=== PATIENT | male | born 1950 | race Caucasian/White ===

== ENCOUNTER → 2020-06-19 11:34 | Outpatient (CLI) | payer MEDICARE, OTHER, SELFPAY ==
[2020-06-19 12:29] LABS: COVID19 -Nasal RAPID Negative (Negative)
== END ==
PROVIDERS: Visit Provider Nurse Practitioner
DX: Z11.59 Encounter for screening for other viral diseases (principal)
CPT/HCPCS: 87635

== ENCOUNTER 2020-06-21 09:38 | Day surgery (SDC) | payer MEDICARE, OTHER, SELFPAY ==
--- NOTE | 2020-06-21 | PATH_ITS ---
[facility] Accession Number: [id number] . 01 Material submitted: . colon - DESCENDING COLON POLYP . 01 Clinical history: . SCREENING COLONOSCOPY . 02 Diagnosis: Descending Colon, Polyp: Tubular adenoma. MRV 06/23/2020 1005 Local . 02 Electronically signed: . Amor Gomez MD, PhD, Pathologist NPI- [id number] . 01 Gross description: . Received in formalin, labeled descending colon polyp, and consists of a 0.3 x 0.2 x 0.2 cm enciso-pink fragment of soft tissue which is entirely submitted in cassette A1. ([id number]) /MRV 06/22/2020 1400 Local . 02 Pathologist provided ICD-10: D12.4 . 02 CPT . 637487 Performed at: 01 [facility] [address] [id number] MD Javon Mcdonnell MD Phone: [phone] Performed at: 02 [facility] [address] [place] [id number] MD Jazmin Malave MD Phone: [phone]
[2020-06-21 10:01] VITALS: BP 158/82; PULSE 81; RESP 18; TEMP 36.8; O2SAT 96; BMI 26.7
[2020-06-21] MEDS: LACTATED RINGERS 1,000 ML 200 ML IV (10:11)
--- NOTE | 2020-06-21 10:55 | PM.HP.1 ---
History of Present Illness History of Present Illness Date Patient Seen: 06/21/20 Time Patient Seen: 10:55 Chief complaint: SCREENING COLONOSCOPY Narrative: The patient presents for colorectal sreening. He had a previously normal colonoscopy 10 years ago. No personal or family history of colon cancer. On further history denies any recent gastrointestinal symptoms. No nausea, vomiting, abdominal pain, loss of appetite, unexplained weight loss, change in bowel habits, diarrhea, constipation, melena, hematochezia, or bright red blood per rectum. Patient History Medical History Ankle pain (~1964) Foot pain (~1999) Hearing loss Personal history of malignant melanoma Psoriasis (~2004) Skin cancer (~1994) Vision disorder Well adult exam Surgical History Anesthesia History of total knee replacement (~2015) Family & Social History Family History Father History of heart disease Mother History of heart disease Social History: household members spouse Tobacco & Substance use: Tobacco type cigarettes Smoking Status Current some day smoker alcohol intake current alcohol intake frequency 0-2 drinks per day Substance Use Type does not use Meds Home Medications and Allergies Home Medications Medication Instructions Recorded Confirmed Type clobetasol 0.05 % topical spray 1 applictn TOP BID 08/04/19 06/21/20 History sodium,potassium,mag sulfates 17.5 177 ml PO DAILY #354 ml 05/31/20 06/21/20 Rx gram-3.13 gram-1.6 gram oral soln Allergies Allergy/AdvReac Type Severity Reaction Status Date / Time No Known Allergies Allergy Uncoded 10/24/19 13:29 Review of Systems Review of Systems Narrative: A 10 point review of systems is negative except as noted in the HPI Exam Vital Signs (past 8 hours): - 06/21/20 10:01 Temperature 98.3 F Pulse Rate 81 Respiratory Rate 18 Blood Pressure 158/82 H Pulse Oximetry 96 Oxygen Delivery Method Room Air Narrative Exam Narrative: General-no acute distress, well nourished adult man HEENT-moist mucous membranes, no scleral icterus Neck-supple, no lymphadenopathy Chest- non labored respirations, clear to auscultation bilaterally Cardiac-regular rate no peripheral edema Abdomen-soft, nontender, non distended Extremities-warm, well perfused Neurological-alert and oriented, no focal deficits Assessment & Plan Assessment and plan (1) Screening for colon cancer: Status: Acute Assessment & Plan narrative: The patient requires colorectal screening and colonoscopy is recommended. Technical details were discussed. Risks, benefits, alternatives explained. Risks including but not limited to myocardial infarction, aspiration, bleeding, pain, missed lesion, incomplete examination, need for further radiographic studies, colonic perforation, and need for major abdominal surgery were discussed. All questions were answered to their satisfaction, and they are in agreement with this plan.
[2020-06-21] MEDS: MIDAZOLAM 5 MG/5 ML VIAL IV (11:05)
[2020-06-21] MEDS: fentaNYL 250 MCG/5 ML INJ IV (11:12)
--- NOTE | 2020-06-21 11:30 | PM.OP.ENDO ---
Operative Date/Time/Diagnoses Date of procedure: 06/21/20 Time of procedure: 11:30 Pre-op diagnosis: Screening colonoscopy Post-op diagnosis: other (The descending colonic polyp, spear diverticulosis) Procedure & Clinicians Study performed: Colonoscopy, polypectomy Same procedure as scheduled: Yes Indications: Screening colonoscopy Surgeon: Saulo Ramirez Procedure Notes SCOAP/Timeout: Performed Procedure in detail: Medications: Conscious sedation using 5mg IV midazolam and 250mcg IV of fentanyl The history and physical was performed/updated and the patient is ASA class is 2. The procedure was discussed in detail with the patient. Potential risks complications including infection, bleeding, missed diagnosis, perforation, need for surgery, and were explained. Their questions were answered and informed consent was obtained. Patient was brought to the procedure room and placed standard monitoring equipment. The patient's vital signs were monitored continuously throughout the entire procedure. Prior to starting time-out was performed. The ablation patient was placed in the left lateral recumbent position. Procedural sedation was administered. Examination began with a thorough inspection of the perianal area there was no evidence of fissures, fistulae, external hemorrhoids or cutaneous malignancy. The colonoscopy scope was then placed into the anal canal and was advanced to the cecum, which was identified by the ileocecal valve, the appendiceal orifice and the confluence of the taenia. The scope was then slowly withdrawn examining colon thoroughly in all directions, irrigating it of any residual stool. 5 mm benign appearing polyp in the descending colon removed with cold 10 mm snare. Spear diverticulosis The patient tolerated the procedure well. They will be discharged once criteria are met. The prep was of good/excellent quality. The withdrawl time was 11 minutes. The sedation time was 28minutes. Specimen(s): other (Descending colon polyp) Complications: none Impression: Colonic polyp, spear diverticulosis Post-procedure Recommendations: Colonscopy in 5 years Disposition: same day surgery
[2020-06-21 11:32] VITALS: BP 121/75; PULSE 68; RESP 20; TEMP 35.7; O2SAT 95
[2020-06-21 11:37] VITALS: BP 121/75; PULSE 76; RESP 19; O2SAT 96
[2020-06-21 11:42] VITALS: BP 132/78; PULSE 67; RESP 22; O2SAT 96
[2020-06-21 11:49] VITALS: BP 125/74; PULSE 62; RESP 14; TEMP 36.4; O2SAT 98
== END 2020-06-21 12:14 | disposition home or self-care (01) ==
PROVIDERS: PCP Internal Medicine; Referring Provider Internal Medicine; Visit Provider Surgery
PROC: 0DJD8ZZ Inspection of Lower Intestinal Tract, Via Natural or Artificial Opening Endoscopic (ICD-10-PCS; CPT 45378; principal; 2020-06-21 10:45)
DX: Z12.11 Encounter for screening for malignant neoplasm of colon (principal); F17.210 Nicotine dependence, cigarettes, uncomplicated; K57.30 Diverticulosis of large intestine without perforation or abscess without bleeding; D12.4 Benign neoplasm of descending colon
CPT/HCPCS: 45380; 99152; 99153; J2250; J3010

== ENCOUNTER → 2021-04-04 12:08 | Outpatient (CLI) | payer MEDICARE, OTHER, SELFPAY ==
--- NOTE | 2021-04-04 12:18 | DI.CT.S_ITS ---
PROCEDURE: CT LE RT WO CON INDICATIONS: Pain in right ankle and joints of right foot TECHNIQUE: Noncontrast 1-1.5 mm axial sections acquired from above the tibiotalar joint to the bottom of the calcaneus, with coronal and sagittal reformats. COMPARISON: [facility] [place], CR, XR ANKLE 3+ VIEWS RIGHT, 03/26/2019, 9:57. [facility] [place], CR, XR ANKLE 3 VIEWS WEIGHT BEARING RIGHT, 11/18/2020, 16:28. FINDINGS: Image quality: Excellent. Bones: There is varus angulation of the talus relative to the distal tibia with areas of severe joint space narrowing and articular surface remodeling at multiple points within the articular surface, including where the medial talus articulates with the medial malleolus, where the medial talar dome articulates with the central tibial plafond, and where the lateral talar dome articulates with the distal fibula. There is mild osseous overgrowth at the distal tibiofibular syndesmosis. Chronic irregularity and remodeling of the medial and lateral malleoli are seen. Degenerative changes are seen at the posterior subtalar facet, most prominent at the articulation between the lateral process of the talus and the calcaneus at the angle of Gissane. A prominent peroneal tubercle is present. Mild dorsal spurring is seen at the talonavicular joint and the navicular cuneiform articulations. Moderate to severe degenerative changes are seen in the 2nd tarsometatarsal joint and there are more mild degenerative changes in the remaining tarsometatarsal joints. Relatively minor degenerative changes are seen in the forefoot and toes. Soft tissues: No acute soft tissue edema or hematoma is seen. The articular cartilages, ligaments, and tendons are not well evaluated with CT. Mild fatty infiltration of the intrinsic foot musculature is noted that may be related to disuse or chronic denervation changes. IMPRESSION: 1. 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 There is chronic mild varus angulation of the talus relative to the distal tibia. 2. Additional degenerative changes throughout the hindfoot and midfoot as described above, with moderate to severe degenerative changes at the 2nd tarsometatarsal joint. Dictated by: Cosmo Nieto M.D. on 04/04/2021 at 14:26 Approved by: Cosmo Nieto M.D. on 04/04/2021 at 14:46
== END ==
PROVIDERS: PCP Internal Medicine; Referring Provider Orthopaedic Surgery Foot and Ankle Surgery; Visit Provider Orthopaedic Surgery Foot and Ankle Surgery
DX: M25.571 Pain in right ankle and joints of right foot (principal)
CPT/HCPCS: 73700

== ENCOUNTER → 2021-08-03 09:07 | Outpatient (CLI) | payer MEDICARE, OTHER, SELFPAY ==
[2021-08-03 13:20] LABS: COVID19 -Nasal RAPID Negative (Negative)
== END ==
PROVIDERS: PCP Internal Medicine; Referring Provider Nurse Practitioner Family; Visit Provider Nurse Practitioner Family
DX: Z01.812 Encounter for preprocedural laboratory examination (principal); Z20.822 Contact with and (suspected) exposure to COVID-19
CPT/HCPCS: 87635; C9803

== ENCOUNTER 2021-08-06 11:24 | Observation (INO) | payer MEDICARE, OTHER, SELFPAY ==
[2021-08-02 15:09] VITALS: BMI 28.0
[2021-08-05] VITALS (12 sets, daily range): BP systolic 105–137; BP diastolic 59–76; PULSE 62–82; RESP 9–64; TEMP 36.1–37.3; O2SAT 15–98; BMI 28.0
--- NOTE | 2021-08-05 | DI.RAD.S_ITS ---
PROCEDURE: XR ANKLE RT 2V INDICATIONS: RIGHT ANKLE FIXATION TECHNIQUE: 3 views of the ankle were acquired. COMPARISON: [facility] [place], CR, XR ANKLE 3 VIEWS WEIGHT BEARING RIGHT, 11/18/2020, 16:28. FINDINGS: Multiple submitted intraoperative fluoroscopic C-arm images demonstrates placement of right tibiotalar joint prosthesis which appears to be in expected position and bony alignment is normal. IMPRESSION: Fluoroscopic images demonstrating placement of right tibiotalar joint prosthesis. Dictated by: Royce Silverman [facility] Interpreted: Rajani Gregorio MD on 08/05/2021 at 13:04 Transcribed by: ROLF on 08/05/2021 at 13:05 Approved by: Rajani Gregorio M.D. on 08/05/2021 at 15:44
[2021-08-05] MEDS: ACETAMINOPHEN 325 MG TABLET 975 MG PO ×3 (06:51→20:07)
[2021-08-05] MEDS: GABAPENTIN 300 MG CAPSULE PO (06:51)
--- NOTE | 2021-08-05 07:09 | PM.PREOP ---
Pre-operative Note COVID-19 COVID-19 status: Negative Result date/Date tested (Pos, Neg/Pending): 08/04/21 Interval Note History & Physical reviewed/Exam performed by Physician: Yes Changes to H&P: No
--- NOTE | 2021-08-05 07:57 | SUR.PREOP ---
Block start time [0740] . Monitoring initiated and maintained throughout procedure. Oxygen and medications given per anesthesiologist instructions. Patient remained stable throughout procedure, no adverse reactions noted. Block end time [0750].
[2021-08-05] MEDS: CEFAZOLIN 2 GM/20 ML SYRINGE IV ×2 (08:07→15:51)
--- NOTE | 2021-08-05 08:14 | PM.PROC.1 ---
Procedures Date/Time Date of procedure: 08/05/21 Time of procedure: 07:44 Nerve Block Time out performed: Yes Local anesthetic used: bupivacaine 0.25% Location of anesthetic used: RIGHT Amount of anesthesia used (mL): 30 Nerve blocks: femoral (adductor canal) Procedure successful: Yes Patient tolerated procedure: well and no complications Complications: none Additional comments: Adductor canal nerve block performed for post-op pain control at surgeon request. Patient was positioned with IV, O2, monitors and rescue meds available. Prepped and timeout performed. Target identified with continuous ultrasound guidance. 30 mL of bupivicaine 0.25% was injected perineurally with intermittent aspiration and injection. No blood, no paresthesias, no acute complications. Ultrasound pic attained.
--- NOTE | 2021-08-05 08:16 | PM.PROC.1 ---
Procedures Date/Time Date of procedure: 08/05/21 Time of procedure: 07:47 Nerve Block Time out performed: Yes Local anesthetic used: bupivacaine 0.25% Location of anesthetic used: RIGHT Amount of anesthesia used (mL): 30 Nerve blocks: peroneal (popliteal) Procedure successful: Yes Patient tolerated procedure: well and no complications Complications: none Additional comments: Popliteal nerve block performed for post-op pain control at surgeon request. Patient was positioned with IV, O2, monitors and rescue meds available. Prepped and timeout performed. Target identified with continuous ultrasound guidance. 30 mL of bupivicaine 0.25% was injected perineurally with intermittent aspiration and injection. No blood, no paresthesias, no acute complications. Ultrasound pic attained.
--- NOTE | 2021-08-05 08:53 | SUR.OPER ---
Supine on padded OR bed, head on pillow, arms secured on padded arm boards at <90 degrees abduction, legs uncrossed, safety belt at waist, tape over blanket over lower left leg, right leg draped free with gel bump under right hip.
[2021-08-05] MEDS: BUPIVACAINE 0.25% (PF) 30 ML, EPINEPHrine 0.15 MG INJ (09:11)
[2021-08-05] MEDS: LACTATED RINGERS 1,000 ML 120 ML IV (09:38)
[2021-08-05] MEDS: fentaNYL 100 MCG/2 ML INJ IV (12:59)
--- NOTE | 2021-08-05 13:22 | P.OP_ITS ---
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 Total ankle arthroplasty right CPT code 84450 2. Repair ankle lateral ligament reconstruction Brostrom CPT code 17148-81 3. Lengthening Achilles tendon, right CPT code 81900-37 Procedures performed with a modifier 22 due to increased difficulty of the procedure took twice as long as the standard ankle replacement due to the severe varus deformity required deltoid peel, meticulous mobilization and debridement, and lateral ligament reconstruction for ligament balancing. Same procedure as scheduled: Yes Indications: Patient is a 70-year-old male with end-stage varus right ankle arthritis. He has failed non operative treatment. He was counseled on options for ankle fusion and total ankle replacement. He has elected for total ankle replacement. The risks benefits and alternatives to the procedure were discussed with the patient and he has been given an opportunity to ask questions. The risks of surgery include but are not limited to infection, malunion, nonunion, persistence of pain, damage to nerves and blood vessels, posttraumatic arthritis, loosening, impingement, need for additional procedures, DVT, PE, pull cardiopulmonary complications and . Patient expressed their understanding of the risks and benefits of surgery and has elected to proceed. Consent was signed in the office. Additionally we discussed additional procedures including ligament balancing and possible osteotomies and Achilles tendon lengthening. During the operation, the services of a physician certified surgical tech/first assistant were medically indicated and necessary to provide the exposure of the operative site for the surgical procedure and to maintain the limb in a proper position to carry out the operation safely and efficiently. Without a qualified equity sales assistant being present this would extended the operative procedure and made the procedure technically more difficult to perform. Surgeon: Mari Bran Hand Hardener: Shakira Girard Anesthesia Type: General, Peripheral nerve block and Local (30 cc 0.25% with epinephrine for local anesthetic) Operative Notes Findings: Varus ankle arthritis approximately 20? required deltoid peel and medial lateral gutter debridements and lateral ligament reconstruction. Equinus contracture with Achilles lengthening. Severe end-stage posttraumatic ankle arthritis treated with total ankle replacement Closure Type: primary Specimen(s): none sent Prosthetic devices, grafts, tissues, transplants, or devices: Saltotalaris tibia 2 XL talus flatcut size 1 right poly 9mm right Arthrex SutureTak anchors 3x 14.5 (two) Estimated Blood Loss (mL): 100 Blood products transfused: none Tourniquet time (min): 150 Procedure in detail: The patient was seen in the preoperative area the site of surgery marked informed consent confirmed. Final questions were answered. The patient was seen by the anesthesia team and a peripheral nerve block was placed by the anesthesiologist for postoperative pain control. The patient was brought back to the operating room by the anesthesia team positioned supine on the operative table. All bony problems well padded. Well-padded thigh tourniquet was placed on the upper right thigh. An ipsilateral thigh bump was placed. An SCD was on the contralateral lower extremity. A bump was placed under the leg with the talus allowing the heel to hang free. The right lower extremities draped in the and prepped in the standard sterile fashion. A formal time-out procedure was performed confirming the patient's side and site of surgery administration of appropriate preoperative antibiotics which was 2 g of Ancef. Implants were in the room and accounted for. All were in agreement. Attention was turned to the right lower extremity an Esmarch bandage was used for exsanguination the tourniquet was elevated left thigh to 250 mmHg this stayed there for 100 and 30 minutes and then was released for greater than 30 minutes then elevated again for about 20 minutes for a total tourniquet time of a divided 150 minutes after appropriate tourniquet break. The standard anterior approach to the ankle was drawn out over the right ankle approximately 12 cm long and 1 cm lateral to the tibial crest extending longitudinally to the level the talonavicular joint. This was taken down through the skin and subcutaneous tissues with care to isolate and protect the superficial peroneal nerve branch. Next the extensor etinaculum was opened. The extensor retinaculum was tagged with a 2-0 PDS suture for later repair. The EHL tendon sheath was opened and the EHL and neurovascular bundle retracted laterally and the tibialis anterior was kept in its tendon sheath and retracted medially. This brought us down directly on the anterior tibia. Dissection was taken all the way to the talonavicular joint to expose the talus. The capsule was divided and retracted. The joint demonstrated end-stage tibiotalar arthritis with large anterior distal tibial spurs and varus alignment. The Bovie cautery and elevators and 10 blade were used to remove the periosteum along the anterior tibia and expose the joint. Gelpi and Weitlaner retractors were used to protect the EHL and neurovascular bundle. An osteotome was then used to remove the anterior distal tibia and expose the tibiotalar joint line and the level of the plafond. Meticulous attention was turned to preparation of the joint. Attention was turned to the varus contracture a deltoid peel was completed using the osteotome and elevator. Additionally osteophytes and medial gutter debridement was completed as well as lateral gutter debridement. With meticulous dissection and debridement the ankle was able to be brought into neutral alignment this was then pinned from the fibula into the talus to hold for the remainder of joint prep. At this point attention was turned to the tibial tubercle and a pin was placed in the tibial tubercle with care to make this perpendicular to the shaft and in line with the osteotome placed in the medial gutter. Then the jig was placed on the 0 slot and taken down to the level of the osteotome. The height was then locked into place. Next fine adjustments were made to the varus and valgus as well as rotation and this will was appropriate and these were locked in displaced in the final height of the resection was taken and started at 9 mm but then was moved to about 11 mm a for resection level at the physeal scar. This was pinned in place. The sizing block for a size 1 tibia was for size this was felt to be a little small and so a size 2 tibial block was then placed this was appropriate. And selected. Next the flat cut talar guide was placed and pinned. This was checked on the lateral to make sure the resection was appropriate. Once this was attic it it was pinned in place and the tibial flat cuts were made. Corners of the tibia were cut and drilled and then the reciprocal saw was used for the sides and the oscillating saw for the distal tibial resection. The tibia and talus resections were then removed. Reciprocating saw was used to clean up the medial and lateral gutters. Removing the remaining osteophytes so there was no impingement. The talus was sized to a 1. Next the tibial tray was pinned in place. The 2 drill holes were drilled and the larger drill hole for the keel was drilled to the stop. The drill guide for the talus was also drilled. This reaming mill was noted to bind on the talar guide and part of it broke off into 2 smaller metal pieces. Both of these were removed in total from the joint radiographs were taken and no remaining fragments were seen. Pieces were accounted for. It was difficult to get to the posterior pin hole in the talus so this was done after the tibial prep the talus was removed in plantar flexed and this was then connected with the osteotome. Final irrigation of the bony cuts was completed prior to implantation of the components. Final trial up sizing from a 8 to a 9 mm poly was completed for additional stability. There was noted to could be a equinus contracture with dorsiflexion only to about 0 therefore a Achilles lengthening was completed. Achilles tendon lengthening was performed in the standard fashion with 3 small incisions for a Rankin style lengthening with the distal and proximal incision directed with bhumika sections medially and the central bhumika section to the lateral side. This provided improved dorsiflexion of at least 15?. After this evaluation of the AP fluoroscopy of the ankle demonstrated There was still a slight amount of play in the tilt so a lateral ligament reconstruction with a Brostrom procedure was going to be indicated. The final implants were opened this was a 2 tibia and a 1 talus and a 9 mm poly. The size 1 talus was pinned in place and mallet it down. This was confirmed on AP and lateral views with appropriate alignment and coverage. Next the tibia was placed in the standard fashion confirming appropriate alignment on the lateral view while impacting. There was no evidence of lift-off. There was excellent bony contact. Once this was completed additional bone from the resection was grafted into the keel hole. Then attention was turned to the lateral ligament reconstruction Brostrom procedure. Separate incision was made over the distal fibula this was taken down through the skin and subcutaneous tissues. A incision off the distal fibula was made transecting lateral ligaments and reflecting them distal. The periosteum was reflected off the distal tibia to create a sleeve for later repair. The distal fibula was prepped with a rongeur. Two of the 3.0 SutureTaks from the Arthrex were impacted. The sutures were then run through the lateral ligaments in the standard horizontal mattress fashion. The extensor retinaculum was for later repair then a modified Brostrom technique. The foot was brought up into dorsiflexion and eversion to tighten the joint and the sutures were tied down in sequential fashion. Final fluoroscopic images were obtained after the lateral ligament repair demonstrated stable neutral alignment of the ankle with no tilting or instability. The wounds were irrigated and repaired with 2-0 Vicryl 4-0 Monocryl and 4-0 nylon. Final fluoroscopic images demonstrated appropriate alignment better resection dorsiflexion and plantar flexion of the ankle. The anterior ankle incision was repaired with 0 Vicryl in the capsule 2-0 PDS in the retinaculum a 4-0 Monocryl subcutaneously and 3-0 nylon in the skin. Tourniquet was released prior to closure. Hemostasis was achieved. Additional 30 cc of local anesthetic was administered. Sterile dressings with Xeroform gauze Webril Nogueira cotton and U splint were placed. The patient was woken from anesthesia and taken to recovery room in good condition. There no immediate complications from this procedure. All counts were correct. Complications: none Post-operative Condition: stable Disposition: PACU Plan for aftercare: Patient will be nonweightbearing or toe-touch on the right lower extremity. Strictly elevate above the heart level. Start DVT prophylaxis with aspirin 325 mg on postop day 1. Will have a few doses of Toradol for multimodal pain control. Blood prescription for oxycodone. Zofran for nausea. Colace for stool softener.
[2021-08-05] MEDS: LACTATED RINGERS 1,000 ML 125 ML IV ×2 (14:01→21:16)
[2021-08-05] MEDS: KETOROLAC 30 MG/ML VIAL 15 MG IV ×2 (14:01→21:08)
--- NOTE | 2021-08-05 18:27 | PM.PNPO.1 ---
Subjective Subjective Date Patient Seen: 08/05/21 Time Patient Seen: 18:27 Interval history: patient doing very well. Block working. Does complain of some irritation in his left eye after surgery. No visible abrasion but is irritated. Discussed adding ophthalmic ointment--order in computer and also sent him some for a outpatient pharmacy. Discussed once pain controlled and safe with PT should discharge home tomorrow Aspirin for DVT prophylaxis starting postop day 1. Also wearing SCDs Medications have been sent to [facility] in accordance Will follow-up in [facility] in 2 weeks Exam Vital Signs (past 8 hours): - 08/05/21 12:36 08/05/21 12:41 08/05/21 12:46 Temperature 98.0 F Pulse Rate 71 64 67 Respiratory Rate 16 18 20 Blood Pressure 132/76 128/69 110/61 Pulse Oximetry 96 95 95 08/05/21 12:51 08/05/21 12:56 08/05/21 13:00 Temperature 98.3 F Pulse Rate 68 66 67 Respiratory Rate 64 H 13 18 Blood Pressure 109/70 105/63 137/75 Pulse Oximetry 15 L 97 98 08/05/21 13:01 08/05/21 13:05 08/05/21 13:20 Temperature Pulse Rate 67 66 67 Respiratory Rate 9 L 13 13 Blood Pressure 112/60 126/68 123/69 Pulse Oximetry 97 97 98 08/05/21 13:26 Temperature Pulse Rate 68 Respiratory Rate 17 Blood Pressure 112/69 Pulse Oximetry 98 Oxygen Delivery Method Room Air Oxygen Flow Rate 0 PFSH Medical History Ankle pain (~1965) Foot pain (~1999) Hearing loss Personal history of malignant melanoma Psoriasis (~2004) Skin cancer (~1994) Vision disorder Well adult exam Surgical History Anesthesia History of total knee replacement (~2015) Family History Father History of heart disease Mother History of heart disease Social History household members: spouse Smoking Status: Current some day smoker Tobacco: How many years used: 30 quit status: has quit before second hand exposure: No alcohol intake: current Assessment & Plan Post-op Postoperative Procedures: Procedures Operation Date: 08/05/21 07:45 Actual Procedure Side Surgeon p Total Ankle Arthorplasty, lateral ankle ligament reconstruction w. Oniel procedure, Right Mari Bran MD s Achilles Tendon Lengthening Right Mari Bran MD Quality VTE Deep Vein Thrombosis/Pulmonary Embolism Present on Admission: No
[2021-08-05] MEDS: DOCUSATE 100 MG CAPSULE PO (20:08)
[2021-08-05] MEDS: NEOMYCIN/POLY/DEX OPHTH OINT 1 APPLIC EYE-LEFT (20:09)
[2021-08-06] MEDS: CEFAZOLIN 2 GM/20 ML SYRINGE IV (00:02)
[2021-08-06 03:25] VITALS: BP 131/70; PULSE 73; RESP 16; TEMP 37.2; O2SAT 97
[2021-08-06] MEDS: OXYCODONE IR 5 MG TABLET PO (03:29)
[2021-08-06] MEDS: KETOROLAC 30 MG/ML VIAL 15 MG IV (05:30)
[2021-08-06 08:05] VITALS: BP 138/73; PULSE 72; RESP 15; TEMP 36.6; O2SAT 97
[2021-08-06] MEDS: DOCUSATE 100 MG CAPSULE PO (09:26)
[2021-08-06] MEDS: lisinopriL 20 MG TABLET PO (09:26)
[2021-08-06] MEDS: PANTOPRAZOLE DR 20 MG TABLET PO (09:26)
[2021-08-06] MEDS: ACETAMINOPHEN 325 MG TABLET 975 MG PO (09:27)
[2021-08-06] MEDS: ASPIRIN EC 325 MG TABLET PO (09:32)
[2021-08-06] MEDS: NEOMYCIN/POLY/DEX OPHTH OINT 1 APPLIC EYE-LEFT ×2 (09:32→13:44)
--- NOTE | 2021-08-06 09:40 | PM.DS.1 ---
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 Total ankle arthroplasty right CPT code 85494 2. Repair ankle lateral ligament reconstruction Brostrom CPT code 63147-78 3. Lengthening Achilles tendon, right CPT code 85459-16 Procedures performed with a modifier 22 due to increased difficulty of the procedure took twice as long as the standard ankle replacement due to the severe varus deformity required? deltoid peel, meticulous mobilization and debridement, and lateral ligament reconstruction for ligament balancing. Same procedure as scheduled: Yes Indications: Patient is a 70-year-old male with end-stage varus right ankle arthritis.? He has failed non operative treatment.? He was counseled on options for ankle fusion and total ankle replacement.? He has elected for total ankle replacement.? The risks benefits and alternatives to the procedure were discussed with the patient and he has been given an opportunity to ask questions.? The risks of surgery include but are not limited to infection, malunion, nonunion, persistence of pain, damage to nerves and blood vessels, posttraumatic arthritis, loosening, impingement, need for additional procedures, DVT, PE, pull cardiopulmonary complications and .? Patient expressed their understanding of the risks and benefits of surgery and has elected to proceed.? Consent was signed in the office.? Additionally we discussed additional procedures including ligament balancing and possible osteotomies and Achilles tendon lengthening.? Discharge Providers Provider Date of admission: 08/05/2021 Discharge Date: 08/06/21 Primary care physician: Tay Sol MD Consults: 08/05/21 13:32 Consult to Discharge Planning Routine Comment: Consult to Physical Therapy Evaluate & Treat Comment: DIALLOWMarnie rle Physician Instructions: Evaluate and Treat Consult to Respiratory Therapy Evaluate & Treat Comment: Physician Instructions: Evaluate and treat Discharge provider: Wendy Zapata PA-C Summary Hospital Course Discharge Diagnosis: 1. Total ankle arthroplasty right CPT code 26640 2. Repair ankle lateral ligament reconstruction Brostrom CPT code 18831-34 3. Lengthening Achilles tendon, right CPT code 73381-19 Hospital Course: On POD#1, pt was sitting up in bed comfortably. 0/10 pain in RLE; only complaint is left eye pain, which is likely due to corneal abrasion encountered during surgery. Receiving neomycin opth ointment with varying degrees of success; current eye pain is 0/10, but can get up to 6/10. He had not yet been OOB w/ PT. He denied N/V and was voiding without difficulty. Status at Discharge Cognitive/behavioral status at discharge: at baseline, oriented Exam Vital Signs (past 8 hours): - 08/06/21 03:25 Temperature 98.9 F Pulse Rate 73 Respiratory Rate 16 Blood Pressure 131/70 Pulse Oximetry 97 Oxygen Delivery Method Room Air Oxygen Flow Rate 0 Narrative Exam Narrative: 5/5 strength in quadriceps and hamstrings on right. Able to wiggle right toes, sensation to touch intact, brisk capillary refill. 5/5 strength and intact touch throughout LLE. Left eye does not appear to be reddened or edematous. EOM intact. No problems with visual acuity. [facility] Medical History Ankle pain (~1965) Foot pain (~1999) Hearing loss Personal history of malignant melanoma Psoriasis (~2004) Skin cancer (~1994) Vision disorder Well adult exam Surgical History Anesthesia History of total knee replacement (~2015) Family History Father History of heart disease Mother History of heart disease Social History household members: spouse Smoking Status: Current some day smoker Tobacco: How many years used: 30 quit status: has quit before second hand exposure: No alcohol intake: current Discharge Assessment & Plan Assessment and Plan Assessment: 1) S/p right ankle arthroplasty. Recovery WNL. 2) Acute left eye pain. Plan of Treatment: 1) Patient will be nonweightbearing or toe-touch on the right lower extremity.? Strictly elevate above the heart level.? Start DVT prophylaxis with aspirin 325 mg on postop day 1.? Will have a few doses of Toradol for multimodal pain control.? Prescription for oxycodone.? Zofran for nausea.? Colace for stool softener. 2) Continue neomycin/polymxin B/dexamethasone ointment ophthalmic QID. May require referral to ophthalmology if irritation continues > 72 hours. Discharge Plan Discharge Plan Patient Disposition: Home Discharge orders & Medications Discharge Orders: Discharge (Order); Ordered 08/06/21 Ordered By: Wendy Zapata Prescriptions: New docusate sodium [Colace] 100 mg capsule 100 mg PO BID Qty: 30 0RF oxycodone 5 mg tablet 5 - 10 mg PO Q4H PRN (Reason: pain) Qty: 42 0RF Rx Instructions: postop exempt ondansetron HCl [Zofran] 4 mg tablet 4 mg PO Q8H PRN (Reason: nausea and vomiting) Qty: 7 1RF aspirin 325 mg tablet,delayed release (DR/EC) 325 mg PO DAILY Qty: 42 0RF kbdfxzml-zxoowywlaz-palnejmzj [Oleg-Polycin] 3.5-400-10,000 jd-anfx-ymcb/g ointment 0.5 inch ophthalmic (eye) QID 5 Days Qty: 3.5 0RF neomycin-polymyxin B-dexameth 3.5 mg/g-10,000 unit/g-0.1 % ointment 1 applic EYE-LEFT QID PRN (Reason: eye irritation) Qty: 3.5 0RF Continued clobetasol 0.05 % spray,non-aerosol 1 applictn TOP BID 0RF No Action lisinopril 20 mg PO DAILY 0RF Follow up/Referrals: Tay Sol MD [Primary Care Provider] - Diet/Activity/Treatments Diet: Diet as Tolerated Activity: Toe-touch weight bearing to right leg. This means you should NOT put any weight on your right foot; you should touch the floor only as needed to maintain your balance. Other treatments: At-Home Instructions - Dr. Bran Surgery: Total ankle arthroplasty Cast/Splint/Dressing Care Instructions 1) Keep cast/dressing clean and dry. 2) May bathe - but cast/dressing must remain dry. 3) Should the cast become wet, you need to come into emergency department or call your physician's clinic immediately for cast removal and replacement. Moisture can cause skin breakdown and lead to infection if left untreated. 4) Do not stick any sharp object down the cast to itch, as this can cause scrapes/cuts/punctures which can lead to infection. 6) Observe for increasing pain in the extremity with the cast, finger/toe-tips turning blue/purple, or numbness and tingling in your toes/fingers. Should any of these symptoms arise, you need to be seen immediately for evaluation of swelling and increasing compartment pressures within your affected extremity. 7) Keep your affected extremity elevated - Toes Above your Nose? - This is archibald in the first two weeks after surgery to minimize swelling. 8) You may ice your extremity, being careful to prevent melting ice from saturating into the splint/cast. Activity No heavy lifting greater than 10 pounds. No [address] while on narcotic pain medication. Do not get your dressing/cast/splint wet! You must remain non-weight bearing on your operative extremity. Use crutches or a walker for ambulation. No driving until you are otherwise instructed by your physician. This will be addressed at your first follow-up appointment. Discharge Pain Medications You will be given a prescription for pain medication. You should start taking this the same day after your surgery. Wean off as tolerated. Do not wait to take the pain medication until the pain is severe, as it will be difficult to catch up once this occurs. The pain medication usually reaches its full effect ~1 hour after ingesting. If you have been sent home on Colace, this medication should be taken until you are off all narcotic (i.e. Vicodin, Percocet, Oxycodone, etc) pain medications, to prevent constipation. You may also obtain this or another stool softener over the counter to prevent or alleviate constipation. Percocet or Vicodin have Tylenol in their ingredient lists. You must be careful not to exceed 3,000mg (3 grams) of Tylenol, from all sources, within a single 24-hr period. This means that you may not take more than 10 pills within a 24-hr period. Do NOT take Regular or Extra Strength Tylenol when taking your Percocet or Vicodin medications. -IF you have been given a Toradol/ketorolac prescription, this is a very strong anti-inflammatory. Do not take uknl-btk-ygwfmml anti-inflammatories (ibuprofen, Aleve, Advil, Motrin) while taking the Toradol/ketorolac. Once you are finished with this prescription, then you can resume setn-dkc-httluye anti-inflammatories. You can still take your narcotic pain medication and Tylenol while taking the Toradol/ketorolac. -Some common side effects of the narcotic pain medications (Percocet, Oxycodone, Vicodin, etc.) include nausea and itching. Benadryl is a great over the counter medication that helps calm your stomach, decreases your anxiety levels, and minimizes the itching. You can easily purchase this at your local pharmacy as an vfhi-trc-okircbj medication. Please abide by the instructions as printed on the bottle. If your nausea persists, make sure to take small amounts of crackers or other cold press operator foods. Follow-Up/Emergency Contacts Please call for an appointment in either [place] or [place], if one has not been scheduled. Follow up 2 weeks after surgery. [phone] Contact the office if you have any of the following: ? Painful swelling or numbness ? Unrelenting pain ? Fever (over 101?- it is normal to have a low grade fever for the first day or two following surgery) or chills ? Redness around the incisions ? Color changes ? Continuous bleeding or drainage from the incision (a small amount is expected) ? Excessive nausea or vomiting ? Difficulty breathing If you have an emergency that requires immediate attention such as shortness of breath or chest pain, call 911 or proceed to the nearest emergency room. Blood Clot Prophylaxis You will need to complete a total 6-week (42 days) course of Aspirin enteric coated (325 mgdaily) after surgery, to minimize the risk of blood clots following surgery. You may alternatively purchase or use axye-bne-tnwuwpf generic equivalent Aspirin. If you already have ?baby? Aspirin (81mg) at home, you can take 4 ?baby? Aspirin to total 324mg for the equivalent dose. If you have gastric upset with this or a history of gastric bleeding or ulcers, do not take aspirin, please call the office for alternatives. Commence foot and ankle. knee pumps and movement with the nonoperative leg to keep your blood moving and help prevent clots. You can also obtain compression socks of antiembolism hose (KRISH) hose from the drug store to wear on the nonoperative leg and also on the operative leg once the splint or cast is removed. Adjust your position or get up onto your crutches every hour or so just to move around. Pain Medications: It is the policy of [facility] that narcotic medications will only be refilled during office hours. Additionally, due to the alarming rate of narcotic pain medication abuse/dependence, it has become necessary for physician practices to closely manage patient use of prescription narcotic pain relievers, such as Vicodin ([place]), Percocet, and Oxycodone products. Narcotic pain management in the postoperative period may not exceed 6 weeks. If narcotic pain management is required beyond 90 days, then a referral to a Chronic Pain Specialist will be made. If a request for a medication prescription has been made, the physician must review your chart prior to authorizing the request. Please be patient with office staff. If you call during patient hours, your call may not be returned until the end of the day. Dr. Mari Bran [address] [email or web address] Skin/Wound/Dressing Care Report to your healthcare provider any signs of infection, such as:: chills, fever, night sweats, increased pain, unusual drainage and unusual redness Visit Report/Discharge Packet Stand Alone Forms: Surgery Discharge Discharge Data Primary Care Provider: Tay Sol Attending Provider: aMri Bran VTE Deep Vein Thrombosis/Pulmonary Embolism Present on Admission: No
--- NOTE | 2021-08-06 11:40 | PT.IIE ---
Current Diagnoses Traumatic arthropathy, right ankle and foot (08/05/21) Primary osteoarthritis, unspecified ankle and foot (08/05/21) Unspecified acquired deformity of right lower leg (08/05/21) Surgery Performed Operation Date: 08/05/21 07:45 Actual Procedures p Total Ankle Arthorplasty, lateral ankle ligament reconstruction w. Brostrom procedure,(Right) - Mari Bran MD s Achilles Tendon Lengthening(Right) - Mari Bran MD Surgical History (Last Reviewed 06/21/20 @ 10:56 by Saulo Ramirez MD) Anesthesia Medical History (Last Reviewed 06/21/20 @ 10:56 by Saulo Ramirez MD) Ankle pain (~1964) Foot pain (~1999) Hearing loss Personal history of malignant melanoma Psoriasis (~2004) Skin cancer (~1994) Vision disorder Well adult exam Physical Therapy Inpatient Evaluation/Re-Eval M1 PT/OT-IP Prior Functional Status Start: 08/06/21 13:16 Freq: NEEDED Status: Active Protocol: Document 08/06/21 11:40 AB (Rec: 08/06/21 13:33 AB [email or web address]) Medical Review Prior Functional Status Medical History Reviewed Yes Communication able to make needs known Mobility and Gait pt stated that he is independent with all mobilities and ambulation without AD Social History Household Members spouse Living Arrangements House Number of Floors (Floors) Two Floors Number of Stairs To Enter/Railing? pt will stay on main level of the house 3 steps without rails to enter the house (pt stated that he practiced steps at home prior to surgery by using a step stool and spouse assisting) Home Environment Standard Height Toilet,Walk in Shower,Built-In Shower Seat Home Equipment Front Wheel Walker,Raised Toilet Seat w/Armrests,Hand Held Shower Additional Social History Comment has a knee scooter M2 PT-IP Current Condition Start: 08/06/21 13:16 Freq: NEEDED Status: Active Protocol: Document 08/06/21 11:40 AB (Rec: 08/06/21 13:33 AB [email or web address]) Physical Therapy Current Condition Current Condition Evaluation Date 08/06/21 Treatment Diagnosis s/p R total ankle arthorplasty ; difficulty in walking Onset Date 08/05/21 M3 PT-IP Subjective Start: 01/15/22 13:16 Freq: NEEDED Status: Active Protocol: Document 08/06/21 11:40 AB (Rec: 08/06/21 13:33 AB [id number]) Subjective Physical Therapy Visit Type Type Initial Evaluation Visit Start Time 11:40 Visit Stop Time 12:01 Total Visit Minutes 21 Number of HEALTH INFORMATICS ADVISOR Visits 0 Physical Therapy Visit Comments Patient Comments agreeable to do PT Therapy Pain Assessment Pain Present Pain Present Denied Pain M4 PT-IP Mobility and Gait Start: 08/06/21 13:16 Freq: NEEDED Status: Active Protocol: Document 08/06/21 11:40 AB (Rec: 08/06/21 13:33 AB [id number]) PT-Bed Mobility Assessment Supine to Sit Supine to Sit Independent Sit to Supine Sit to Supine Independent PT-Transfer Assessment Sit to and From Stand Sit to and from Stand Standby Assistance,1 Person Assistance,Use of Upper Extremities Equipment Transfer Assistive Device Gait Belt,Front Wheeled Walker Orthotic/Prosthetic Devices or Brace: Yes Comments Mobility Comments pt is alert and oriented x 4 and is aware of his precautions and restrictions. pt stated that he has practiced walking with his knee scooter and prefers this method but also has a FWW and stated that he will use a FWW for bathroom transfers.pt completed supine to sit mod I. completed sit to stand SBA. able to maintain weight bearing restriction and opted for NWB for safety. ambulated in room using FWW SBA ~ 30 ft. pt has 3 steps to enter the house. pt stated that he practiced at home prior to surgery by using a step stool to step up the stairs. spouse assists pt with stair climbing. spouse positions the step stool on the next step and pt positioned his R knee on step stool for support and pt then steps up with his LLE. pt also holds on to his spouse for this. unable to simulate stair climbing and use of knee scooter due to equipement availability restrictions but pt is cognitively intact and with good safety awareness and will have assistance at home. pt lay back in bed sit to supine mod I. positioned pt in bed. call light and table placed within reach. Gait Assessment Gait Gait Assistance Required: Standby Assistance Distance (Feet) 30 Able to Maintain Weight Bearing Status Yes During Gait Assistive Devices Assistive Device Gait Belt,Front Wheeled Walker Orthotic/Prosthetic Devices or Brace: Yes Gait Deviations General Gait Pattern Decreased Stride Length, Decreased Feet Clearance Factors Limiting Gait Function Factors Limiting Gait Function Decreased Activity Tolerance, Decreased Strength,Limited Range of Motion,Poor Balance Stair Climbing Assessment Comments Stair Climbing Comments pls refer to mobility section for details PT-Balance Assessment Sitting Balance and Reactions Static Sitting Balance Ability Normal Dynamic Sitting Balance Ability Normal Standing Balance and Reactions Static Standing Balance Ability Fair Dynamic Standing Balance Ability Fair Device Used FWW M5 PT-IP Objective Assessments Start: 08/06/21 13:16 Freq: NEEDED Status: Active Protocol: Document 08/06/21 11:40 AB (Rec: 08/06/21 13:33 AB [email or web address]) Orientation Orientation/Cognition Level of Alertness Alert Orientation Name,Age,Birthday,Month,Date, Year,Day of Week,Place, Situation Language Function Ability No Deficits Noted Safety Awareness Understands Safety Issues Memory Description No Deficits Noted Gross Range of Motion Lower Extremity ROM Assessment Right Impaired Impairments R ankle on cast Coordination Assessment Gross Coordination Gross Coordination WNL Sensation Assessment Sensation Gross Sensation WNL Muscle Tone Muscle Tone WNL Yes M6 PT-IP Treatment Start: 08/06/21 13:16 Freq: NEEDED Status: Active Protocol: Document 08/06/21 11:40 AB (Rec: 08/06/21 13:33 AB [email or web address]) Physical Therapy Treatment Education Education Provided Precautions,Weight Bearing Status,Safety M7 PT-IP Assessment and Plan Start: 08/06/21 13:16 Freq: NEEDED Status: Active Protocol: Document 08/06/21 11:40 AB (Rec: 08/06/21 13:33 AB [email or web address]) PT Summary Assessment and Plan Potential Rehabilitation Potential Good Status of Condition at Evaluation Stable Summary Impairments Pain,ROM,Strength,Balance, Coordination,Sensation,Tone, Cognition,Bed Mobility, Transfers,Gait,Activity Tolerance Assessment Summary pt requiring SBA with mobility and is equiped with necessary DMEs needed for d/c. pt plans to go home and spouse to assist him. pt may go home when medically stable. Goals Transfer Goal Independent,Front Wheeled Walker Gait Goal Independent,Front Wheel Walker Gait Distance 100 Other Goals up/down 3 steps min A ambulation using knee scooter 200 ft SBA Days to Meet Goals 5 Frequency of Treatment Frequency Of Treatment Twice a Day Treatment Plan Physical Therapy Treatment Plan Bed Mobility Training,Transfer Training,Gait Training, Therapeutic Exercise,Balance Retraining,Post Op Education, Discharge Planning,Hot or Cold Pack,Neuromuscular Re-ed, Coordination Retraining,Manual Therapy Weight Bearing Status Weight Bearing Status Touch Down Weight Bearing Allowed Weight Bearing Amount (enter % RLE TTWB or #) (%) Recommendations To Nursing Amount of Assist Needed 1 Person Assist Discharge Recommendations PT Discharge Recommendations Home with Assistance, Outpatient PT Transportation Needs at Discharge Private Vehicle
--- NOTE | 2021-08-06 14:22 | CM.IDA ---
Initial DCP Assessment Note Pt is a 70 yo male, resident of [place], now POD#1 from ankle surgery by Dr Bran PCP: Tay Sol Payer: FREDERICK/Joan Reviewed chart, pt discussed in multidisciplinary rounds this morning. Therapy has cleared pt for return home w/family to assist and pt has planned for home, DC order from Ortho has already been initiated this morning. Met w/patient who is eager to return home w/spouse to begin his recovery. Patient denies needs from this WOUND NURSE, appreciative for the visit. No needs expected from DC planning team although will remain available in case this changes today. ASHLY Perez
--- NOTE | 2021-08-06 16:09 | PC.NURSE ---
Discharged by provider, per provider okay to change gómez wrap prior to d/c. Cleared P.T., gómez wrap changed. Pt verbalized understanding of all written and verbal instructions. IV removed. Pt dressed and escorted off unit via w/c in stable condition with all personal belongings.
== END 2021-08-06 16:00 | disposition home or self-care (01) ==
LOC: OR 08-07 14:12 → AC 08-07 14:16
PROVIDERS: Admitting Provider Orthopaedic Surgery Foot and Ankle Surgery; PCP Internal Medicine; Referring Provider Orthopaedic Surgery Foot and Ankle Surgery; Visit Provider Orthopaedic Surgery Foot and Ankle Surgery
PROC: (CPT 27702; principal; 2021-08-05 07:45)
PROC: (CPT 27685; 2021-08-05 07:45)
DX: M12.571 Traumatic arthropathy, right ankle and foot (principal); M21.961 Unspecified acquired deformity of right lower leg; I10 Essential (primary) hypertension; K21.9 Gastro-esophageal reflux disease without esophagitis; F41.9 Anxiety disorder, unspecified; Z87.891 Personal history of nicotine dependence
CPT/HCPCS: 27702; 27698; 27685; 64450; 73600; 76000; 97161; 99406; C1776; G0378; J0171; J0690; J1100; J1885; J2250; J2405; J2704; J3010

== ENCOUNTER → 2022-03-11 10:56 | Outpatient (CLI) | payer MEDICARE, OTHER, SELFPAY ==
[2021-08-05 13:41] VITALS: BMI 28.0
== END ==
PROVIDERS: PCP Internal Medicine; Visit Provider Physician Assistant
DX: T14.8XXA Other injury of unspecified body region, initial encounter (principal)
CPT/HCPCS: 87070; 87077; 87147; 87186; 87205

== ENCOUNTER 2023-04-21 23:53 | Emergency (ER) | payer MEDICARE, OTHER, SELFPAY ==
[2023-04-21 23:53] VITALS: BMI 28.0
[2023-04-22] VITALS: BP 167/90; PULSE 70; RESP 16; TEMP 35.5; O2SAT 99; BMI 58.3
--- NOTE | 2023-04-22 00:08 | DI.RAD.S_ITS ---
PROCEDURE: XR HIP W PEL IF DONE RT 2V INDICATIONS: RT hip pain s/p trauma TECHNIQUE: AP pelvis with lateral view(s) of the right hip(s). COMPARISON: None. FINDINGS: Bones: No fractures or dislocations. Pelvic ring appears intact. No suspicious bony lesions. Soft tissues: The visualized bowel gas pattern is normal. No suspicious soft tissue calcifications. IMPRESSION: No trauma found. Dictated by: Srinivasa Sanchez M.D. on 04/22/2023 at 1:44 Approved by: Srinivasa Sanchez M.D. on 04/22/2023 at 1:44
--- NOTE | 2023-04-22 00:10 | PC.NURSE ---
pain x 2 weeks, no hx blood clots
[2023-04-22 00:30] VITALS: BP 158/84; PULSE 61; O2SAT 100
[2023-04-22 01:00] VITALS: BP 156/84; PULSE 59; O2SAT 97
--- NOTE | 2023-04-22 01:20 | PC.NURSE ---
to xr for hip xr per wc
--- NOTE | 2023-04-22 02:10 | ED_ITS ---
HPI - Extremity Injury (Lower) General Chief Complaint: Extremity Injury, Lower Stated Complaint: possible blood clot Time Seen by Provider: 04/22/23 02:10 Source: patient Mode of arrival: Ambulatory History of Present Illness HPI Narrative: Patient is a 72-year-old male history of hypertension presenting today with right leg pain. He reports that about 2 weeks ago he ran into the side of a table he reports today it pretty hard but does not remember any bruising or pain immediately afterwards. He then traveled to [place] shortly there after I am when he got back he started having pain in his right thigh. He reports the medial side is kind of numbness and tingling sensation and the lateral side as a dull ache. He has no prior history of DVT. No chest pain shortness of breath fever or other symptoms there is no significant swelling or erythema. He is worried about a blood clot. He takes Tylenol and ibuprofen. He is able to get around and do things he is pretty active liliana. He notices pain more night. He takes Tylenol prior to bed at last visit 4 hours and then the pain wakes him from his. Related Data Home Medications Medication Instructions Recorded Confirmed clobetasol 0.05 % topical spray 1 applictn topical BID 08/04/19 03/11/22 lisinopril 20 mg PO DAILY 08/05/21 03/11/22 Previous Rx's Medication Instructions Recorded aspirin 325 mg tablet,delayed 325 mg PO DAILY #42 tabs 08/05/21 release docusate sodium 100 mg capsule 100 mg PO BID #30 caps 08/05/21 (Colace) ondansetron HCl 4 mg tablet 4 mg PO Q8H PRN nausea and 08/05/21 (Zofran) vomiting #7 tabs oxycodone 5 mg tablet 5 - 10 mg PO Q4H PRN pain #42 tabs 08/05/21 neomycin 3.5 mg/g-polymyxin B 1 applic EYE-LEFT QID PRN eye 08/06/21 10,000 unit/g-dexameth 0.1 % eye irritation #3.5 grams oint Allergies Allergy/AdvReac Type Severity Reaction Status Date / Time No Known Drug Allergies Allergy Verified 03/11/22 10:38 Review of Systems Review of Systems ROS Unobtainable: All systems reviewed & are unremarkable except as noted in HPI and below Patient History Medical History Ankle pain (~1965) Foot pain (~1999) Hearing loss Personal history of malignant melanoma Psoriasis (~2004) Skin cancer (~1994) Vision disorder Well adult exam Surgical History Anesthesia History of total knee replacement (~2015) Family History Father History of heart disease Mother History of heart disease Social History household members: spouse Smoking Status: Current some day smoker Tobacco: How many years used: 30 quit status: has quit before second hand exposure: No alcohol intake: current Smoking Status: Current some day smoker alcohol intake frequency: 0-2 drinks per day Substance Use Type: does not use Exam Initial Vital Signs Initial Vital Signs: Vital Signs Temperature 96 F L 04/22/23 00:00 Pulse Rate 70 04/22/23 00:00 Respiratory Rate 16 04/22/23 00:00 Blood Pressure 167/90 H 04/22/23 00:00 Pulse Oximetry 99 04/22/23 00:00 Oxygen Delivery Method Room Air 04/22/23 00:00 GENERAL: Alert 72 year male and in no acute distress. HEENT: Head atraumatic,EOMI, pupils reactive, face symmetric, moist mucous membranes CARDIOVASCULAR: Regular rate and rhythm without murmurs, rubs or gallops. RESPIRATORY: Breath sounds equal bilaterally, no wheezes rales or rhonchi. EXTREMITIES: Normal range of motion, no clubbing or edema. Neurovascularly intact Right leg no significant swelling no pain in hip no erythema NEUROLOGICAL: Alert and oriented x4. SKIN: Warm, dry, no laceration, no petechiae, no rashes or lesions. Course Orders Ordered: ED Orders 04/22/23 00:08 XR hip w pel if done RT 2V Stat 04/22/23 02:24 US periph venous low extrem rt Stat Vital Signs Vital signs: Vital Signs - 8 hr 04/22/23 00:00 10 00:30 04/22/23 03:30 Temperature 96 F L Pulse Rate 70 60 Respiratory Rate 16 18 Blood Pressure 167/90 H 158/84 H 148/80 H Pulse Oximetry 99 97 Oxygen Delivery Method Room Air 04/22/23 00:30 04/22/23 01:00 04/22/23 01:00 Temperature Pulse Rate 61 59 L Respiratory Rate Blood Pressure 156/84 H Pulse Oximetry 100 97 Oxygen Delivery Method MDM - Extremity Injury (Lower) Imaging Data Extremity x-ray #1: Radiologist's Impression: PROCEDURE:? XR HIP W PEL IF DONE RT 2V ? INDICATIONS:? RT hip pain s/p trauma ? TECHNIQUE:? AP pelvis with lateral view(s) of the right hip(s).? ? COMPARISON:? None. ? FINDINGS:? ? Bones:? No fractures or dislocations.? Pelvic ring appears intact.? No suspicious bony lesions.? ? Soft tissues:? The visualized bowel gas pattern is normal.? No suspicious soft tissue calcifications.? ? ? IMPRESSION:? No trauma found. ? Dictated by: Srinivasa Sanchez M.D. on 04/22/2023 at 1:44 ? ? US - DVT: Radiologist's Impression: Preliminary report no DVT Igor it and right lower extremities MDM Narrative Medical decision making narrative: Patient lev 72-year-old male presents today with right leg pain. It has been ongoing about 2 weeks started after an airplane trip to [place] along with an injury. He really does not have any swelling or erythema. Low suspicion for DVT although he did dish just traveled. He has some numbness tingling medial sign a dull ache otherwise. X-ray is negative for fracture DVT ultrasound is negative for DVT. I expect in ongoing neuropathy although he denies any buttock pain. No changes in bowel or bladder. He is previously had sciatica this is semi similar but not the same. At this time recommend supportive care only Tylenol Motrin. It sounds as though he is if fall asleep with time. Discharge Plan Departure Patient Disposition: Home Clinical Impression: Neuropathy Instructions: DI for Peripheral Neuropathy Activity Restrictions/Additional Instructions: *You have been diagnosed with neuropathy *What to do: At this time no evidence of fracture or blood clot. I think probably more of nerve pain. Recommend stretching heating ice *Continue to take medications as directed Tylenol 650 mg every 4-6 hours if needed for ltfe-kz-atazptok pain Motrin 600 mg every 6 hours if needed for aagm-zu-cfyucciy *Follow up with your primary care provider in 2-3 days or call [phone] *Return to ER if you should have increasing pain swelling red or any new, worsening or concerning symptoms Prescriptions: No Action clobetasol 0.05 % spray,non-aerosol 1 applictn TOP BID docusate sodium [Colace] 100 mg capsule 100 mg PO BID Qty: 30 0RF oxycodone 5 mg tablet 5 - 10 mg PO Q4H PRN (Reason: pain) Qty: 42 0RF Rx Instructions: postop exempt ondansetron HCl [Zofran] 4 mg tablet 4 mg PO Q8H PRN (Reason: nausea and vomiting) Qty: 7 1RF aspirin 325 mg tablet,delayed release (DR/EC) 325 mg PO DAILY Qty: 42 0RF lisinopril 20 mg PO DAILY neomycin-polymyxin B-dexameth 3.5 mg/g-10,000 unit/g-0.1 % ointment 1 applic EYE-LEFT QID PRN (Reason: eye irritation) Qty: 3.5 0RF Referrals: Tay Sol MD [Primary Care Provider] - Stand Alone Forms: Patient Portal/API
--- NOTE | 2023-04-22 02:24 | DI.US.S_ITS ---
PROCEDURE: US PERIPH VENOUS LOW EXTREM RT INDICATIONS: RIGHT LEG PAIN TECHNIQUE: Real-time imaging, as well as color and pulse Doppler interrogation, were performed of the lower extremity deep veins from the inguinal ligament to the popliteal fossa, with documentation of the visualized calf veins. COMPARISON: None. FINDINGS: The common femoral, femoral, popliteal, and the visualized calf veins are normally compressible, and free of intraluminal thrombus. Color and pulse Doppler demonstrate normal phasic intraluminal flow. There is normal augmentation response to distal compression maneuver. Prominent right inguinal lymph node with a fatty hilum. IMPRESSION: No findings of lower extremity deep venous thrombosis. Findings are concordant with preliminary interpretation provided by [facility]. Dictated by: Lei Rodriguez M.D. on 04/22/2023 at 9:06 Approved by: Lei Rodriguez M.D. on 04/22/2023 at 9:07
[2023-04-22 03:30] VITALS: BP 148/80; PULSE 60; RESP 18; O2SAT 97
== END 2023-04-22 03:56 | disposition home or self-care (01) ==
PROVIDERS: Emergency Provider Emergency Medicine; PCP Internal Medicine
DX: G62.9 Polyneuropathy, unspecified (principal)
CPT/HCPCS: 73502; 93971; 99283; 99284

== ENCOUNTER → 2024-06-09 16:30 | Outpatient (CLI) | payer MEDICARE, OTHER, SELFPAY | PROVIDERS: PCP Internal Medicine; Visit Provider Nurse Practitioner Family | DX: M54.9 Dorsalgia, unspecified (principal) | CPT/HCPCS: 87086 ==

== ENCOUNTER 2024-06-09 16:38 | Emergency (ER) | payer MEDICARE, OTHER, SELFPAY ==
[2024-06-09] VITALS (15 sets, daily range): BP systolic 152–209; BP diastolic 75–100; PULSE 60–69; RESP 20; TEMP 36.4; O2SAT 96–100; BMI 25.4
[2024-06-09 17:19] LABS: Add Manual Diff / Slide Review NO; Basophils Absolute Auto 100 /uL (0-100); Basophils Percent Auto 1.3 % (0-2); Eosinophils Absolute Auto 300 /uL (0-450); Hematocrit 39.7 % (41-53); Lymphocytes Absolute Auto 1500 /uL (1100-4500); Lymphocytes Percent Auto 17.8 % (25-40); Mean Corpuscular HGB Conc 32.6 % (30-36); Mean Corpuscular Hemoglobin 31.4 PG (26-34); Mean Corpuscular Volume 96.3 fL (80-100); Monocytes Absolute Auto 800 /uL (0-900); Neutrophils Absolute Auto 5500 /uL (1500-7000); Neutrophils Percent Auto 66.9 % (50-75); Platelet Count 364 X10^3/uL (150-400); Red Blood Cell Count 4.12 X10^6/uL (4.5-5.9); White Blood Cell Count 8.2 X10^3/uL (4.5-11.0)
[2024-06-09 17:32] LABS: Alanine Aminotransferase 18 IU/L (<50); Albumin 3.7 g/dL (3.5-5.0); Albumin Globulin Ratio 1.3 (1.0-2.8); Alkaline Phosphatase 65 U/L (38-126); Aspartate Aminotransferase 24 IU/L (17-59); BUN Creatinine Ratio 23.1 (6-22); Bilirubin Total 0.5 mg/dL (0.2-1.3); Blood Urea Nitrogen 27 mg/dL (9-20); Calcium 9.2 mg/dL (8.4-10.2); Carbon Dioxide 25 mmol/L (22-32); Chloride 107 mmol/L (98-107); Estimated Glomerular Filt Rate > 60 mL/min (>60); Globulin 2.8 g/dL (1.7-4.1); Glucose 91 mg/dL (80-110); HEMOLYSIS < 15 (0-50); Potassium 4.3 mmol/L (3.4-5.1); Sodium 134 mmol/L (137-145); Total Protein 6.5 g/dL (6.3-8.2)
[2024-06-09] MEDS: KETOROLAC 30 MG/ML VIAL 15 MG IV (17:38)
[2024-06-09 18:38] LABS: Bacteria Urine Occasional (0-1); Culture Indicated Urine Cult Not Indicated; Mucus Urine 1+ (Negative); RBC Urine 1-5/HPF (0-5/HPF); Squamous Epithelial Cell Urine None Seen (0-5/HPF); Urine Volume 10mL (spun); WBC Urine 0-1/HPF (0-5/HPF)
--- NOTE | 2024-06-09 19:25 | ED.ABDPAIN ---
HPI - Abdominal Pain General Chief Complaint: Urogenital-Male Stated Complaint: WIC; Poss Kidney Stone Time Seen by Provider: 06/09/24 18:04 Source: patient Mode of arrival: Ambulatory History of Present Illness HPI narrative: Patient is a 73-year-old male with history of psoriasis treated topically presenting today with left flank pain. He reports that he did move some not heavy folding chairs last night. But does report some pain from his left flank radiating around to his abdomen. No nausea or vomiting. Pain does get worse with movement. He does have a prior history of remote right-sided kidney stone. He has no pain or numbness down his leg. No painful frequent urination. He did get Toradol prior to my evaluation it does feel better but would like something more for pain. Related Data Home Medications Medication Instructions Recorded Confirmed clobetasol 0.05 % topical spray 1 applictn topical BID 08/04/19 03/11/22 lisinopril 20 mg PO DAILY 08/05/21 03/11/22 Previous Rx's Medication Instructions Recorded aspirin 325 mg tablet,delayed 325 mg PO DAILY #42 tabs 08/05/21 release docusate sodium 100 mg capsule 100 mg PO BID #30 caps 08/05/21 (Colace) ondansetron HCl 4 mg tablet 4 mg PO Q8H PRN nausea and 08/05/21 (Zofran) vomiting #7 tabs oxycodone 5 mg tablet 5 - 10 mg (1 - 2 x 5 mg) PO Q4H 08/05/21 PRN pain #42 tabs neomycin 3.5 mg/g-polymyxin B 1 applic EYE-LEFT QID PRN eye 08/06/21 10,000 unit/g-dexameth 0.1 % eye irritation #3.5 grams oint hydrocodone 5 mg-acetaminophen 325 1 tab PO Q6H PRN pain #10 tabs 06/09/24 mg tablet Allergies Allergy/AdvReac Type Severity Reaction Status Date / Time No Known Drug Allergies Allergy Verified 06/09/24 16:24 Patient History Medical History Vision disorder Hearing loss Psoriasis (~2004) Foot pain (~1999) Ankle pain (~1964) Skin cancer (~1994) Personal history of malignant melanoma Well adult exam Surgical History Anesthesia History of total knee replacement (~2016) Family History Father History of heart disease Mother History of heart disease Social History household members: spouse Smoking Status: Current some day smoker Tobacco: How many years used: 30 quit status: has quit before second hand exposure: No alcohol intake: current Smoking Status: Current some day smoker alcohol intake frequency: 0-2 drinks per day Substance Use Type: does not use Exam Initial Vital Signs Initial Vital Signs: Vital Signs Pulse Rate 69 06/09/24 16:41 Pulse Oximetry 99 06/09/24 16:41 GENERAL: Alert pleasant 73-year-old male and in no acute distress. HEENT: Head atraumatic,EOMI, pupils reactive, face symmetric, moist mucous membranes CARDIOVASCULAR: Regular rate and rhythm without murmurs, rubs or gallops. RESPIRATORY: Breath sounds equal bilaterally, no wheezes rales or rhonchi. ABDOMEN: Soft, nontender. No real left lower quadrant pain no distention Normoactive bowel sounds all 4 quadrants. No guarding or rebound. : Mild left flank EXTREMITIES: Normal range of motion, no clubbing or edema. Neurovascularly intact NEUROLOGICAL: Alert and oriented x4.Normal gait and speech. Cranial nerves II through XII grossly intact. SKIN: Warm, dry, no laceration, no petechiae, no rashes or lesions. Course Orders Ordered: ED Orders 06/09/24 17:15 Complete Blood Count AUTO DIFF Stat Comprehensive Metabolic Panel Stat 06/09/24 18:14 Urine Microscopic Stat 06/09/24 19:25 CT kidney ureter bladder (KUB) Stat Discontinued Medications Hydrocodone Bitart/Acetaminophen (Hydrocodone/Acet 5/325 Prepack) 1 bottle MISC DIRECTED ONE Stop: 06/09/24 21:30 Last Admin: 06/09/24 21:35 Dose: 1 bottle Documented By: YANNA Ketorolac Tromethamine (Ketorolac 30 Mg/Ml Vial) 15 mg IV NOW ONE Stop: 06/09/24 16:54 Last Admin: 06/09/24 17:38 Dose: 15 mg Documented By: JALEEL Morphine Sulfate (Morphine 2 Mg/Ml Inj) 2 mg IV NOW ONE Stop: 06/09/24 19:31 Last Admin: 06/09/24 19:54 Dose: 2 mg Documented By: YURI Vital Signs Vital signs: Vital Signs - 8 hr 06/09/24 18:00 06/09/24 18:00 06/09/24 18:30 Pulse Rate 64 62 Blood Pressure 185/86 H Pulse Oximetry 98 99 Oxygen Delivery Method Room Air 06/09/24 18:31 06/09/24 18:31 06/09/24 19:00 Pulse Rate 60 Blood Pressure 155/75 H 177/88 H Pulse Oximetry 98 Oxygen Delivery Method 06/09/24 19:00 06/09/24 19:30 06/09/24 19:59 Pulse Rate 60 Blood Pressure 172/84 H Pulse Oximetry 98 98 Oxygen Delivery Method Room Air 06/09/24 19:59 06/09/24 20:00 06/09/24 20:00 Pulse Rate 63 62 Blood Pressure 160/83 H Pulse Oximetry 98 99 Oxygen Delivery Method 06/09/24 20:30 06/09/24 20:30 06/09/24 21:00 Pulse Rate 65 Blood Pressure 155/81 H 152/84 H Pulse Oximetry 97 Oxygen Delivery Method 06/09/24 21:00 Pulse Rate 61 Blood Pressure Pulse Oximetry 96 Oxygen Delivery Method MDM - Abdominal Pain Lab Data 06/09/24 17:15 06/09/24 17:15 Labs: Lab Results 06/09/24 06/09/24 Range/Units 17:15 18:14 WBC 8.2 (4.5-11.0) X10^3/uL RBC 4.12 L (4.5-5.9) X10^6/uL Hgb 13.0 L (13.5-17.5) g/dL Hct 39.7 L (41-53) % MCV 96.3 (80-100) fL MCH 31.4 (26-34) PG MCHC 32.6 (30-36) % RDW 14.0 (11.6-14.8) % Plt Count 364 (150-400) X10^3/uL Neut % (Auto) 66.9 (50-75) % Lymph % (Auto) 17.8 L (25-40) % [place] % (Auto) 10.0 (3-14) % Eos % (Auto) 4.0 (2-4) % Baso % (Auto) 1.3 (0-2) % Neut # (Auto) 5500 (0787-5666) /uL Lymph # (Auto) 1500 (8959-0863) /uL [place] # (Auto) 800 (0-900) /uL Eos # (Auto) 300 (0-450) /uL Baso # (Auto) 100 (0-100) /uL Sodium 134 L (137-145) mmol/L Potassium 4.3 (3.4-5.1) mmol/L Chloride 107 (98-107) mmol/L Carbon Dioxide 25 (22-32) mmol/L BUN 27 H (9-20) mg/dL Creatinine 1.17 (0.66-1.25) mg/dL Estimated GFR > 60 (>60) mL/min BUN/Creatinine Ratio 23.1 H (6-22) Glucose 91 (80-110) mg/dL Calcium 9.2 (8.4-10.2) mg/dL Total Bilirubin 0.5 (0.2-1.3) mg/dL AST 24 (17-59) IU/L ALT 18 (<50) IU/L Alkaline Phosphatase 65 (38-126) U/L Total Protein 6.5 (6.3-8.2) g/dL Albumin 3.7 (3.5-5.0) g/dL Globulin 2.8 (1.7-4.1) g/dL Albumin/Globulin Ratio 1.3 (1.0-2.8) Urine RBC 1-5/hpf (0-5/HPF) Urine WBC 0-1/hpf (0-5/HPF) Ur Squamous Epith Cells None seen (0-5/HPF) Urine Bacteria Occasional (0-1) (None) Urine Mucus 1+ H (Negative) Ur Culture Indicated? Cult not indicated Vol Urine Centrifuged 10ml (spun) Point of care testing: Urine Dip Bedside Urine Glucose Negative Bedside Urine Bilirubin - Negative Bedside Urine Ketone - Negative Urine Specific [place] 1.015 Bedside Urine Occult Blood ++ Bedside Urine pH 6.0 Bedside Urine Protein - Negative Bedside Urine Urobilinogen - Negative Bedside Urine Nitrite - Negative Bedside Urine Leukocytes - Negative Esterase Imaging Data CT scan - abdomen/pelvis: Radiologist's Impression: PROCEDURE: CT KIDNEY URETER BLADDER (KUB) INDICATIONS: left flank pain TECHNIQUE: Axial sections were acquired from the lung bases to the pubic symphysis. Coronal and sagittal reformats were performed. For radiation dose reduction, the following was used: automated exposure control, adjustment of mA and/or kV according to patient size. COMPARISON: None. FINDINGS: Image quality: Diagnostic. Lower Chest: Mild coronary calcifications. Lung bases are clear. URINARY: Right Kidney: Multiple parapelvic renal cysts. No stones or hydronephrosis. Right Ureter: No hydroureter. Left Kidney: Multiple parapelvic renal cysts. No stones or hydronephrosis. Left Ureter: No hydroureter. Bladder: Normal wall thickness. No stones. ABDOMEN: Liver: No contour-deforming solid mass. Gallbladder: Multiple small calcified gallstones. No pericholecystic inflammatory changes. Biliary ducts: No biliary dilation. Pancreas: No ductal dilation. A few scattered coarse calcifications are seen in the pancreas. Spleen: Size is within normal limits. Adrenal Glands: No adrenal nodules. Stomach and Bowel: Numerous colonic diverticula are present. No focal inflammatory changes are seen to suggest acute diverticulitis. A diverticulum is seen arising from the duodenum without associated inflammatory changes. Normal retrocecal appendix. Small bowel loops are nondilated. Peritoneum: No abnormal intraperitoneal fluid. No free air. Ventral Wall: Small fat containing periumbilical hernia. Abdominal Nodes: No enlarged retroperitoneal or mesenteric lymph nodes. Vessels: Aorta and inferior vena cava are normal in size. PELVIS: Pelvic Organs: Unremarkable. Pelvic Nodes: Unremarkable. Miscellaneous: No inguinal hernias are seen. Bones: Unremarkable. IMPRESSION: 1. No obstructing stones or hydronephrosis. 2. Extensive colonic diverticulosis without signs of acute diverticulitis. 3. Cholelithiasis. 4. A few coarse calcifications in the pancreas could indicate mild chronic pancreatitis. No ductal dilatation. Approved by: Cosmo Nieto M.D. on 06/09/2024 at 20:15 MDM Narrative Medical decision making narrative: MDM CC: Left flank pain Complicating co-morbidities: Psoriasis Medical records reviewed: Previous ED visits from the walk-in clinic today Differential considered: Nephrolithiasis musculoskeletal, sciatica dissection Exam documented above, pertinent findings include: Mild left flank pain minimal left lower quadrant pain appears nontoxic Lab Test results independently reviewed as above. Pertinent findings: No leukocytosis no SUSANNAH urinalysis does not show any evidence of hematuria or infection Imaging studies independently reviewed: CT does not show any evidence of nephrolithiasis Treatments: Toradol morphine Re-evaluations: Patient was feeling better after Toradol but started feeling pain again requested some morphine. Ultimately says morphine did help Discussion: Patient is 73-year-old male presenting today with left flank pain it is radiating around to his abdomen. Definitely worse with movement. He has no hematuria blood work is overall reassuring without any leukocytosis or SUSANNAH. No evidence of a UTI. CT does not show any cause for back pain. It is tender to palpate in worse with standing up. At this time most consistent with musculoskeletal injury. He initially was noted to be hypertensive low suspicion for dissection. Discharge Plan Departure Patient Disposition: Home Clinical Impression: Back pain Instructions: Low Back Pain Activity Restrictions/Additional Instructions: *You have been diagnosed with back pain *What to do: At this time increase activity as tolerated recommend heating pad light movement no significant heavy lifting. *Continue to take medications as directed [place] 1 tablet every 6 hours if needed for cuik-wc-tuiayrjx pain Motrin 600 mg every 6 hours if needed for jshv-ew-fedowpjv pain *Follow up with your primary care provider in 2-3 days or call [phone] *Return to ER if you should have increasing pain numbness tingling weakness [or] any new, worsening or concerning symptoms CONTROLLED SUBSTANCE DISCHARGE (Narcotoic/benzodiazepine/Flexeril/Phenergan) 1. You have been prescribed narcotic medications, it does have acetaminophen/Tylenol/paracetamol in it, DO NOT TAKE MORE THAN 4,00mg in 24 hours of Tylenol. TRAMADOL DOES NOT CONTAIN TYLENOL 2. Please understand that we cannot provide further refills of narcotics, benzodiazepines or controlled substances through the ED and her pain management will need to be through your provider. 3. While on these medications you cannot drive or operate heavy machinery. 4. You cannot sign legal documents or perform any duties such as this. 5. As long as you're taking opiate pain medications he should also be taking a stool softener such as Colace, Dulcolax, MiraLAX or prune juice, to help avoid constipation. Prescriptions: New hydrocodone-acetaminophen 5-325 mg tablet 1 tab PO Q6H PRN (Reason: pain) Qty: 10 0RF No Action clobetasol 0.05 % spray,non-aerosol 1 applictn TOP BID docusate sodium [Colace] 100 mg capsule 100 mg PO BID Qty: 30 0RF oxycodone 5 mg tablet 5 - 10 mg PO Q4H PRN (Reason: pain) Qty: 42 0RF Rx Instructions: postop exempt ondansetron HCl [Zofran] 4 mg tablet 4 mg PO Q8H PRN (Reason: nausea and vomiting) Qty: 7 1RF aspirin 325 mg tablet,delayed release (DR/EC) 325 mg PO DAILY Qty: 42 0RF lisinopril 20 mg PO DAILY neomycin-polymyxin B-dexameth 3.5 mg/g-10,000 unit/g-0.1 % ointment 1 applic EYE-LEFT QID PRN (Reason: eye irritation) Qty: 3.5 0RF Referrals: Tay Sol MD [Primary Care Provider] - Stand Alone Forms: Patient Portal/API/Survey
[2024-06-09] MEDS: MORPHINE 2 MG/ML INJ IV (19:54)
[2024-06-09] MEDS: HYDROCODONE/ACET 5/325 PREPACK 1 BOTTLE MISC (21:35)
== END 2024-06-09 21:47 | disposition home or self-care (01) ==
PROVIDERS: Emergency Medicine; Emergency Provider Emergency Medicine; PCP Internal Medicine
DX: M54.50 Low back pain, unspecified (principal); R10.9 Unspecified abdominal pain; Z87.442 Personal history of urinary calculi; M54.9 Dorsalgia, unspecified
CPT/HCPCS: 74176; 80053; 81003; 81015; 85025; 87086; 96374; 96375; 99284; J1885; J2270

== ENCOUNTER 2024-06-12 15:46 | Inpatient (IN) | payer MEDICARE, OTHER, SELFPAY ==
[2024-06-12] VITALS (36 sets, daily range): BP systolic 84–131; BP diastolic 40–69; PULSE 73–114; RESP 18–36; TEMP 36.8–37.1; O2SAT 91–98; BMI 27.5; BMI 26.7
--- NOTE | 2024-06-12 | DI.RAD.S_ITS ---
PROCEDURE: XR GASTROGRAFIN CHALLENGE COMPARISON: [facility], CR, XR ABDOMEN MIN 2V, 06/13/2024, 11:05. [facility], CT, CT ABDOMEN PELVIS WO CON, 06/12/2024, 18:36. INDICATIONS: oral contrast for suspected ileus vs SBO on prior CT Findings and impression: Again seen are moderately distended loops of small bowel filled with oral contrast. Oral contrast is also seen in the stomach, indicating significantly delayed transit versus enteric gastro reflux. Colonic bowel gas is seen, but not definitely filled with oral contrast. Differential remains obstruction versus ileus. Osseous degenerative changes. Dictated by: Dominic Ponce M.D. on 06/14/2024 at 18:01 Approved by: Dominic Ponce M.D. on 06/14/2024 at 18:04
--- NOTE | 2024-06-12 15:54 | DI.RAD.S_ITS ---
PROCEDURE: XR CHEST 1V INDICATIONS: chest pain TECHNIQUE: One view of the chest was acquired. COMPARISON: None. FINDINGS: Surgical changes and devices: None. Lungs and pleura: Lungs are clear. No pleural effusions or pneumothorax. Mediastinum: Mediastinal contours appear normal. Heart size is normal. Bones and chest wall: No suspicious bony lesions. Overlying soft tissues appear unremarkable. IMPRESSION: No acute cardiopulmonary abnormality is seen. Dictated by: William Peraza M.D. on 06/12/2024 at 16:30 Approved by: William Peraza M.D. on 06/12/2024 at 16:30
--- NOTE | 2024-06-12 16:03 | PC.NURSE ---
called and spoke with dental office. Dr. Ulices Webb, [place] [phone], was in the background talking. reported that patient had a topical agent , lidocaine, prilocaine and tetracaine in the medication compounded by [facility], . states there is no Epinephrine in the mixture. Dr. Lyons aware
[2024-06-12 16:10] LABS: Add Manual Diff / Slide Review NO; Basophils Absolute Auto 0 /uL (0-100); Basophils Percent Auto 0.2 % (0-2); Eosinophils Absolute Auto 0 /uL (0-450); Eosinophils Percent Auto 0.1 % (2-4); Hematocrit 44.4 % (41-53); Hemoglobin 14.8 g/dL (13.5-17.5); Lymphocytes Absolute Auto 900 /uL (1100-4500); Mean Corpuscular HGB Conc 33.3 % (30-36); Mean Corpuscular Hemoglobin 31.9 PG (26-34); Mean Corpuscular Volume 95.7 fL (80-100); Monocytes Absolute Auto 1200 /uL (0-900); Monocytes Percent Auto 7.8 % (3-14); Neutrophils Absolute Auto 13100 /uL (1500-7000); Neutrophils Percent Auto 85.9 % (50-75); Platelet Count 449 X10^3/uL (150-400); Red Blood Cell Count 4.64 X10^6/uL (4.5-5.9); Red Cell Distribution Width 13.7 % (11.6-14.8); White Blood Cell Count 15.2 X10^3/uL (4.5-11.0)
--- NOTE | 2024-06-12 16:10 | EKG_ITS ---
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
[2024-06-12 16:17] LABS: INR 0.9 (0.9-1.3); Prothrombin Time 10.4 SECONDS (9.4-12.5)
[2024-06-12 16:20] LABS: PTT Partial Thromboplastin Tim 30 SECONDS (25.1-36.5)
[2024-06-12 16:27] LABS: Alanine Aminotransferase 23 IU/L (<50); Albumin 4.8 g/dL (3.5-5.0); Albumin Globulin Ratio 1.5 (1.0-2.8); Alkaline Phosphatase 62 U/L (38-126); Aspartate Aminotransferase 28 IU/L (17-59); Blood Urea Nitrogen 25 mg/dL (9-20); Calcium 10.9 mg/dL (8.4-10.2); Carbon Dioxide 24 mmol/L (22-32); Chloride 96 mmol/L (98-107); Creatine Kinase 37 U/L (55-170); Estimated Glomerular Filt Rate 30 mL/min (>60); Globulin 3.1 g/dL (1.7-4.1); Glucose 153 mg/dL (80-110); HEMOLYSIS < 15 (0-50); Lipase 29 U/L (23-300); Magnesium 2.2 mg/dL (1.6-2.3); Potassium 3.8 mmol/L (3.4-5.1); Sodium 133 mmol/L (137-145); Total Protein 7.9 g/dL (6.3-8.2)
--- NOTE | 2024-06-12 16:29 | ED.GENADULT ---
HPI - General Adult General Chief complaint: Abdominal Pain Stated complaint: Hypotension Time Seen by Provider: 06/12/24 16:02 Mode of arrival: EMS Related Data Home Medications Medication Instructions Recorded Confirmed clobetasol 0.05 % topical spray 1 applictn topical BID 08/04/19 03/11/22 lisinopril 20 mg PO DAILY 08/05/21 03/11/22 Previous Rx's Medication Instructions Recorded aspirin 325 mg tablet,delayed 325 mg PO DAILY #42 tabs 08/05/21 release docusate sodium 100 mg capsule 100 mg PO BID #30 caps 08/05/21 (Colace) ondansetron HCl 4 mg tablet 4 mg PO Q8H PRN nausea and 08/05/21 (Zofran) vomiting #7 tabs oxycodone 5 mg tablet 5 - 10 mg (1 - 2 x 5 mg) PO Q4H 08/05/21 PRN pain #42 tabs neomycin 3.5 mg/g-polymyxin B 1 applic EYE-LEFT QID PRN eye 08/06/21 10,000 unit/g-dexameth 0.1 % eye irritation #3.5 grams oint hydrocodone 5 mg-acetaminophen 325 1 tab PO Q6H PRN pain #10 tabs 06/09/24 mg tablet Allergies Allergy/AdvReac Type Severity Reaction Status Date / Time No Known Drug Allergies Allergy Verified 06/09/24 16:24 Patient History Medical History Vision disorder Hearing loss Psoriasis (~2004) Foot pain (~1999) Ankle pain (~1964) Skin cancer (~1994) Personal history of malignant melanoma Well adult exam Surgical History Anesthesia History of total knee replacement (~2015) Family History Father History of heart disease Mother History of heart disease Social History household members: spouse Smoking Status: Current some day smoker Tobacco: How many years used: 30 quit status: has quit before second hand exposure: No alcohol intake: current Smoking Status: Current some day smoker tobacco type: cigarettes alcohol intake frequency: 0-2 drinks per day Substance Use Type: does not use Exam Initial Vital Signs Initial Vital Signs: Vital Signs Temperature 98.2 F 06/12/24 15:52 Pulse Rate 73 06/12/24 15:52 Respiratory Rate 19 06/12/24 15:52 Blood Pressure 88/55 L 06/12/24 15:52 Pulse Oximetry 98 06/12/24 15:52 Oxygen Delivery Method Room Air 06/12/24 15:52 Course Orders Ordered: ED Orders 06/12/24 15:35 Complete Blood Count AUTO DIFF Stat Comprehensive Metabolic Panel Stat Lipase Stat Magnesium Stat NT-proBNP (BNP-Adult 18+) Stat PTT Partial Thromboplastin Richard Stat Prothrombin Time INR Stat Troponin & CK Cardiac Panel Stat 06/12/24 15:54 XR chest 1V Stat EKG-12 Lead Stat Discontinued Medications Aspirin (Aspirin 81 Mg Chew Tab) 324 mg PO NOW ONE Stop: 06/12/24 15:55 Vital Signs Vital signs: Vital Signs - 8 hr 06/12/24 15:52 06/12/24 15:55 06/12/24 15:55 Temperature 98.2 F Pulse Rate 73 82 Respiratory Rate 19 19 Blood Pressure 88/55 L 84/52 L Pulse Oximetry 98 98 Oxygen Delivery Method Room Air 06/12/24 15:56 06/12/24 15:56 06/12/24 16:00 Temperature Pulse Rate 76 Respiratory Rate 23 Blood Pressure 92/60 89/52 L Pulse Oximetry 98 Oxygen Delivery Method 06/12/24 16:00 Temperature Pulse Rate 75 Respiratory Rate 21 Blood Pressure Pulse Oximetry 97 Oxygen Delivery Method Medical Decision Making Lab Data 06/12/24 15:35 06/12/24 15:35 Labs: Lab Results 06/12/24 Range/Units 15:35 WBC 15.2 H (4.5-11.0) X10^3/uL RBC 4.64 (4.5-5.9) X10^6/uL Hgb 14.8 (13.5-17.5) g/dL Hct 44.4 (41-53) % MCV 95.7 (80-100) fL MCH 31.9 (26-34) PG MCHC 33.3 (30-36) % RDW 13.7 (11.6-14.8) % Plt Count 449 H (150-400) X10^3/uL Neut % (Auto) 85.9 H (50-75) % Lymph % (Auto) 6.0 L (25-40) % [place] % (Auto) 7.8 (3-14) % Eos % (Auto) 0.1 L (2-4) % Baso % (Auto) 0.2 (0-2) % Neut # (Auto) 90614 H (7485-8175) /uL Lymph # (Auto) 900 L (9300-4707) /uL [place] # (Auto) 1200 H (0-900) /uL Eos # (Auto) 0 (0-450) /uL Baso # (Auto) 0 (0-100) /uL PT 10.4 (9.4-12.5) SECONDS INR 0.9 (0.9-1.3) APTT 30 (25.1-36.5) SECONDS Sodium 133 L (137-145) mmol/L Potassium 3.8 (3.4-5.1) mmol/L Chloride 96 L (98-107) mmol/L Carbon Dioxide 24 (22-32) mmol/L BUN 25 H (9-20) mg/dL Creatinine 2.28 H (0.66-1.25) mg/dL Estimated GFR 30 L (>60) mL/min BUN/Creatinine Ratio 11.0 (6-22) Glucose 153 H (80-110) mg/dL Calcium 10.9 H (8.4-10.2) mg/dL Magnesium 2.2 (1.6-2.3) mg/dL Total Bilirubin 1.0 (0.2-1.3) mg/dL AST 28 (17-59) IU/L ALT 23 (<50) IU/L Alkaline Phosphatase 62 (38-126) U/L Total Creatine Kinase 37 L (55-170) U/L Total Protein 7.9 (6.3-8.2) g/dL Albumin 4.8 (3.5-5.0) g/dL Globulin 3.1 (1.7-4.1) g/dL Albumin/Globulin Ratio 1.5 (1.0-2.8) Lipase 29 (23-300) U/L Discharge Plan Departure Prescriptions: No Action clobetasol 0.05 % spray,non-aerosol 1 applictn TOP BID docusate sodium [Colace] 100 mg capsule 100 mg PO BID Qty: 30 0RF oxycodone 5 mg tablet 5 - 10 mg PO Q4H PRN (Reason: pain) Qty: 42 0RF Rx Instructions: postop exempt ondansetron HCl [Zofran] 4 mg tablet 4 mg PO Q8H PRN (Reason: nausea and vomiting) Qty: 7 1RF aspirin 325 mg tablet,delayed release (DR/EC) 325 mg PO DAILY Qty: 42 0RF lisinopril 20 mg PO DAILY neomycin-polymyxin B-dexameth 3.5 mg/g-10,000 unit/g-0.1 % ointment 1 applic EYE-LEFT QID PRN (Reason: eye irritation) Qty: 3.5 0RF hydrocodone-acetaminophen 5-325 mg tablet 1 tab PO Q6H PRN (Reason: pain) Qty: 10 0RF Referrals: Tay Sol MD [Primary Care Provider] -
[2024-06-12 16:39] LABS: NT-proBNP (BNP-Adult 18+) 526 pg/mL (<125); Troponin I < 0.012 ng/mL (0.01-0.034)
[2024-06-12] MEDS: ONDANSETRON 4 MG/2 ML INJ IV ×2 (16:44→23:58)
--- NOTE | 2024-06-12 16:51 | PC.NURSE ---
Remaining 600cc EMS fluids infusing per MD Lyons request
--- NOTE | 2024-06-12 17:54 | EKG_ITS ---
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
--- NOTE | 2024-06-12 18:03 | DI.CT.S_ITS ---
PROCEDURE: CT ABDOMEN PELVIS WO CON INDICATIONS: INTRACTABLE VOMITING, NEW RENAL FAILURE TECHNIQUE: Axial sections were acquired from the lung bases to the pubic symphysis. Coronal and sagittal reformats were performed. For radiation dose reduction, the following was used: automated exposure control, adjustment of mA and/or kV according to patient size. COMPARISON: [facility], CT, CT KIDNEY URETER BLADDER (KUB), 06/09/2024, 19:32. FINDINGS: Image quality: Diagnostic. Lower Chest: Extensive calcified plaque in the LAD coronary artery. URINARY: Right Kidney: No stones or hydronephrosis. Several small peripelvic cysts. Right Ureter: No hydroureter. Left Kidney: No stones or hydronephrosis. Several small peripelvic cysts. Small left cortical cysts. Left Ureter: No hydroureter. Bladder: Normal wall thickness. No stones. ABDOMEN: Liver: Hypodensity at the right liver, (2/39), unchanged. Most likely a benign cyst or hemangioma. Gallbladder: Several small layering gallstones. No pericholecystic fluid. Biliary ducts: No biliary dilation. Pancreas: No ductal dilation. Calcifications at the tail the pancreas. Most consistent with chronic calcific pancreatitis. Spleen: Size is within normal limits. Adrenal Glands: No adrenal nodules. Stomach and Bowel: Stomach is distended. Duodenal diverticulum. Small bowel obstruction. Gradual transition to normal caliber in the right lower quadrant. Normal appendix. Extensive diverticulosis. No diverticulitis. Peritoneum: No pneumoperitoneum. No ascites. Ventral Wall: Small fat containing umbilical hernia. Abdominal Nodes: No enlarged retroperitoneal or mesenteric lymph nodes. Vessels: Aorta and inferior vena cava are normal in size. Calcifications at the renal artery origins. PELVIS: Pelvic Organs: Unremarkable. Pelvic Nodes: Unremarkable. Miscellaneous: No inguinal hernias are seen. Bones: No suspicious osseous lesion. Extensive degenerative changes. IMPRESSION: 1. New small bowel obstruction. Possible transition point in the right abdomen. 2. No free fluid. No pneumoperitoneum. 3. Diverticulosis. Gallstones. Chronic calcific pancreatitis. No kidney stones. Comment: Findings were discussed with Dorothy Post at 7:40 p.m. Dictated by: Afshin Barillas M.D. on 06/12/2024 at 19:26 Approved by: Afshin Barillas M.D. on 06/12/2024 at 19:40
[2024-06-12] MEDS: METOCLOPRAMIDE 10 MG/2 ML INJ IV (18:09)
--- NOTE | 2024-06-12 18:22 | ED_ITS ---
HPI - General Adult General Chief complaint: Abdominal Pain Stated complaint: Hypotension Time Seen by Provider: 06/12/24 16:02 Mode of arrival: EMS History of Present Illness HPI narrative: 73-year-old male with history of hypertension on lisinopril, psoriasis on topical therapy presents by EMS from home for heartburn, low blood pressure, nausea and vomiting. Patient states that he was at the dentist's office for a routine cleaning. After they started to clean his teeth he felt symptoms began. These lasted for about 20 minutes and resolved. Patient stated he began to feel lightheaded and nauseous on his way home and called [address] On my evaluation patient states he was feeling better. He states he has been constipated following his visit to the ER on 06/09 for low back pain. He thinks that he was dehydrated and not keeping up with his fluids as he has a very dry mouth. Related Data Home Medications Medication Instructions Recorded Confirmed clobetasol 0.05 % topical spray 1 applictn topical BID PRN 08/04/19 06/12/24 Psoriasis acetaminophen 500 mg tablet 1,000 mg PO QID PRN pain 06/12/24 06/12/24 aspirin 81 mg tablet 81 mg PO DAILY 06/12/24 06/12/24 lisinopril 10 mg tablet 10 mg PO DAILY Hypertension 06/12/24 06/12/24 omeprazole 20 mg capsule,delayed 20 mg PO DAILY Acid reflux 06/12/24 06/12/24 release Previous Rx's Medication Instructions Recorded hydrocodone 5 mg-acetaminophen 325 1 tab PO Q6H PRN pain #10 tabs 06/09/24 mg tablet Allergies Allergy/AdvReac Type Severity Reaction Status Date / Time No Known Drug Allergies Allergy Verified 06/09/24 16:24 Patient History Medical History Vision disorder Hearing loss Psoriasis (~2004) Foot pain (~1999) Ankle pain (~1964) Skin cancer (~1994) Personal history of malignant melanoma Well adult exam Surgical History Anesthesia History of total knee replacement (~2015) Family History Father History of heart disease Mother History of heart disease Social History household members: spouse Smoking Status: Current some day smoker Tobacco: How many years used: 30 quit status: has quit before second hand exposure: No alcohol intake: current Smoking Status: Current some day smoker tobacco type: cigarettes alcohol intake frequency: 0-2 drinks per day Substance Use Type: does not use Exam Initial Vital Signs Initial Vital Signs: Vital Signs Temperature 98.2 F 06/12/24 15:52 Pulse Rate 73 06/12/24 15:52 Respiratory Rate 19 06/12/24 15:52 Blood Pressure 88/55 L 06/12/24 15:52 Pulse Oximetry 98 06/12/24 15:52 Oxygen Delivery Method Room Air 06/12/24 15:52 Const: Awake, alert, no acute distress, nontoxic appearing Cardiac: regular rate, regular rhythm RESP: unlabored, clear bilaterally, no wheezing GI: Soft, nontender, nondistended, no rebound, no guarding Skin: Warm, Dry, intact, no rashes Neuro: AO x3, CN II-XII grossly intact, moves all extremities Course Orders Ordered: ED Orders 06/12/24 15:35 Complete Blood Count AUTO DIFF Stat Comprehensive Metabolic Panel Stat Lipase Stat Magnesium Stat NT-proBNP (BNP-Adult 18+) Stat PTT Partial Thromboplastin Richard Stat Prothrombin Time INR Stat Troponin & CK Cardiac Panel Stat 06/12/24 15:54 XR chest 1V Stat EKG-12 Lead Stat 06/12/24 17:33 Troponin I Stat 06/12/24 17:54 EKG-12 Lead Routine 06/12/24 18:03 CT abdomen pelvis wo con Stat 06/12/24 19:09 UA Complete [Urinalysis and Microscopic] Stat 06/12/24 20:35 Consult to General Surgery Stat Bisacodyl (Bisacodyl 10 Mg Supp) 10 mg MO DAILY PRN PRN Reason: Constipation Hydromorphone HCl (Hydromorphone 0.5 Mg Inj) 0.5 mg IV Q2H PRN PRN Reason: Pain, Severe (7-10) Sodium Chloride (Normal Saline 0.9%) 1,000 mls @ 100 mls/hr IV CONT CROW Last Admin: 06/12/24 22:28 Dose: 100 mls/hr Documented By: ERON Naloxone HCl (Naloxone 0.4 Mg/Ml Vial) 0.2 mg IV Q2MIN PRN PRN Reason: Opiate Reversal Ondansetron HCl (Ondansetron 4 Mg/2 Ml Inj) 4 mg IV Q4HR PRN PRN Reason: nausea Discontinued Medications Al Hydrox/Mg Hydrox/Simethicone (Mag Hydrox/Alum/Simeth 30 Ml Udc) 30 ml PO NOW ONE Stop: 06/12/24 18:36 Last Admin: 06/12/24 18:51 Dose: 30 ml Documented By: LISA Aspirin (Aspirin 81 Mg Chew Tab) 324 mg PO NOW ONE Stop: 06/12/24 15:55 Last Admin: 06/12/24 16:50 Dose: Not Given Documented By: LISA Sodium Chloride (Normal Saline 0.9%) 1,000 mls @ 1,000 mls/hr IV BOLUS ONE Stop: 06/12/24 19:34 Last Infusion: 06/12/24 21:10 Dose: Infused Documented By: Admin: 06/12/24 18:51 Dose: 1,000 mls/hr Documented By: LISA Influenza Virus Vaccine (Influenza Hd Vaccine 0.5 Ml Syringe) 0.5 ml IM .ONCE ONE Stop: 06/12/24 21:52 Lidocaine HCl (Lidocaine Viscous 2% 15 Ml Solution) 15 ml PO NOW ONE Stop: 06/12/24 18:36 Last Admin: 06/12/24 18:50 Dose: 15 ml Documented By: LISA Metoclopramide HCl (Metoclopramide 10 Mg/2 Ml Inj) 10 mg IV NOW ONE Stop: 06/12/24 18:05 Last Admin: 06/12/24 18:09 Dose: 10 mg Documented By: KOREY Ondansetron HCl (Ondansetron 4 Mg/2 Ml Inj) 4 mg IV NOW ONE Stop: 06/12/24 16:34 Last Admin: 06/12/24 16:44 Dose: 4 mg Documented By: LISA Vital Signs Vital signs: Vital Signs - 8 hr 06/12/24 15:52 06/12/24 15:55 06/12/24 15:55 Temperature 98.2 F Pulse Rate 73 82 Respiratory Rate 19 19 Blood Pressure 88/55 L 84/52 L Pulse Oximetry 98 98 Oxygen Delivery Method Room Air 06/12/24 15:56 06/12/24 15:56 06/12/24 16:00 Temperature Pulse Rate 76 Respiratory Rate 23 Blood Pressure 92/60 89/52 L Pulse Oximetry 98 Oxygen Delivery Method 06/12/24 16:00 06/12/24 16:45 06/12/24 16:45 Temperature Pulse Rate 75 78 Respiratory Rate 21 24 Blood Pressure 100/58 L Pulse Oximetry 97 94 Oxygen Delivery Method 06/12/24 16:50 06/12/24 16:50 06/12/24 16:55 Temperature Pulse Rate 87 81 Respiratory Rate 29 H 31 H Blood Pressure 98/54 L Pulse Oximetry 95 96 Oxygen Delivery Method 06/12/24 16:55 06/12/24 17:00 06/12/24 17:00 Temperature Pulse Rate 86 Respiratory Rate 26 H Blood Pressure 106/58 L 102/61 Pulse Oximetry 97 Oxygen Delivery Method 06/12/24 17:05 06/12/24 17:05 06/12/24 17:10 Temperature Pulse Rate 86 Respiratory Rate 30 H Blood Pressure 109/61 115/65 Pulse Oximetry 95 Oxygen Delivery Method 06/12/24 17:10 06/12/24 17:15 06/12/24 17:15 Temperature Pulse Rate 74 75 Respiratory Rate 28 H 28 H Blood Pressure 114/61 Pulse Oximetry 97 98 Oxygen Delivery Method 06/12/24 17:20 06/12/24 17:20 06/12/24 17:25 Temperature Pulse Rate 74 81 Respiratory Rate Blood Pressure 111/63 Pulse Oximetry 98 97 Oxygen Delivery Method 06/12/24 17:25 06/12/24 17:30 06/12/24 17:30 Temperature Pulse Rate 74 Respiratory Rate 29 H Blood Pressure 114/55 L 98/57 L Pulse Oximetry 97 Oxygen Delivery Method 06/12/24 17:35 06/12/24 17:35 06/12/24 17:40 Temperature Pulse Rate 75 Respiratory Rate 25 H Blood Pressure 98/51 L 101/56 L Pulse Oximetry 96 Oxygen Delivery Method 06/12/24 17:40 06/12/24 17:45 06/12/24 17:45 Temperature Pulse Rate 80 75 Respiratory Rate 29 H 29 H Blood Pressure 94/51 L Pulse Oximetry 96 97 Oxygen Delivery Method 06/12/24 17:50 06/12/24 17:50 06/12/24 17:55 Temperature Pulse Rate 74 78 Respiratory Rate 28 H Blood Pressure 100/61 Pulse Oximetry 97 97 Oxygen Delivery Method 06/12/24 17:55 06/12/24 18:00 06/12/24 18:00 Temperature Pulse Rate 75 Respiratory Rate 26 H Blood Pressure 100/64 100/58 L Pulse Oximetry 98 Oxygen Delivery Method 06/12/24 18:06 06/12/24 18:06 06/12/24 18:10 Temperature Pulse Rate 114 H Respiratory Rate 28 H Blood Pressure 110/65 120/67 Pulse Oximetry 95 Oxygen Delivery Method 06/12/24 18:10 06/12/24 18:16 06/12/24 18:16 Temperature Pulse Rate 89 80 Respiratory Rate 21 25 H Blood Pressure 107/66 Pulse Oximetry 95 96 Oxygen Delivery Method 06/12/24 18:20 06/12/24 18:20 06/12/24 18:25 Temperature Pulse Rate 87 Respiratory Rate 22 Blood Pressure 108/59 L 105/57 L Pulse Oximetry 94 Oxygen Delivery Method 06/12/24 18:25 06/12/24 18:30 06/12/24 18:31 Temperature Pulse Rate 82 87 84 Respiratory Rate 25 H Blood Pressure Pulse Oximetry 91 95 95 Oxygen Delivery Method 06/12/24 18:31 06/12/24 18:35 06/12/24 18:35 Temperature Pulse Rate 94 H Respiratory Rate Blood Pressure 110/68 109/67 Pulse Oximetry 95 Oxygen Delivery Method 06/12/24 19:00 06/12/24 19:15 06/12/24 19:15 Temperature Pulse Rate 98 H 88 Respiratory Rate 30 H Blood Pressure 93/57 L Pulse Oximetry 95 92 Oxygen Delivery Method 06/12/24 19:20 06/12/24 19:30 06/12/24 20:00 Temperature Pulse Rate 81 77 91 H Respiratory Rate 22 24 36 H Blood Pressure 100/56 L 105/58 L 131/69 Pulse Oximetry 92 93 93 Oxygen Delivery Method 06/12/24 20:30 Temperature Pulse Rate 75 Respiratory Rate 32 H Blood Pressure 116/65 Pulse Oximetry 97 Oxygen Delivery Method Medical Decision Making Lab Data 06/12/24 15:35 06/12/24 15:35 Labs: Lab Results 06/12/24 06/12/24 Range/Units 15:35 17:33 WBC 15.2 H (4.5-11.0) X10^3/uL RBC 4.64 (4.5-5.9) X10^6/uL Hgb 14.8 (13.5-17.5) g/dL Hct 44.4 (41-53) % MCV 95.7 (80-100) fL MCH 31.9 (26-34) PG MCHC 33.3 (30-36) % RDW 13.7 (11.6-14.8) % Plt Count 449 H (150-400) X10^3/uL Neut % (Auto) 85.9 H (50-75) % Lymph % (Auto) 6.0 L (25-40) % [place] % (Auto) 7.8 (3-14) % Eos % (Auto) 0.1 L (2-4) % Baso % (Auto) 0.2 (0-2) % Neut # (Auto) 25243 H (8222-2319) /uL Lymph # (Auto) 900 L (2381-4036) /uL [place] # (Auto) 1200 H (0-900) /uL Eos # (Auto) 0 (0-450) /uL Baso # (Auto) 0 (0-100) /uL PT 10.4 (9.4-12.5) SECONDS INR 0.9 (0.9-1.3) APTT 30 (25.1-36.5) SECONDS Sodium 133 L (137-145) mmol/L Potassium 3.8 (3.4-5.1) mmol/L Chloride 96 L (98-107) mmol/L Carbon Dioxide 24 (22-32) mmol/L BUN 25 H (9-20) mg/dL Creatinine 2.28 H (0.66-1.25) mg/dL Estimated GFR 30 L (>60) mL/min BUN/Creatinine Ratio 11.0 (6-22) Glucose 153 H (80-110) mg/dL Calcium 10.9 H (8.4-10.2) mg/dL Magnesium 2.2 (1.6-2.3) mg/dL Total Bilirubin 1.0 (0.2-1.3) mg/dL AST 28 (17-59) IU/L ALT 23 (<50) IU/L Alkaline Phosphatase 62 (38-126) U/L Total Creatine Kinase 37 L (55-170) U/L Troponin I < 0.012 < 0.012 (0.01-0.034) ng/mL NT-Pro-B Natriuret Pep 526 H (<125) pg/mL Total Protein 7.9 (6.3-8.2) g/dL Albumin 4.8 (3.5-5.0) g/dL Globulin 3.1 (1.7-4.1) g/dL Albumin/Globulin Ratio 1.5 (1.0-2.8) Lipase 29 (23-300) U/L Imaging Data CT scan - abdomen/pelvis: Radiologist's Impression: PROCEDURE: CT ABDOMEN PELVIS WO CON INDICATIONS: INTRACTABLE VOMITING, NEW RENAL FAILURE TECHNIQUE: Axial sections were acquired from the lung bases to the pubic symphysis. Coronal and sagittal reformats were performed. For radiation dose reduction, the following was used: automated exposure control, adjustment of mA and/or kV according to patient size. COMPARISON: [facility], CT, CT KIDNEY URETER BLADDER (KUB), 06/09/2024, 19:32. FINDINGS: Image quality: Diagnostic. Lower Chest: Extensive calcified plaque in the LAD coronary artery. URINARY: Right Kidney: No stones or hydronephrosis. Several small peripelvic cysts. Right Ureter: No hydroureter. Left Kidney: No stones or hydronephrosis. Several small peripelvic cysts. Small left cortical cysts. Left Ureter: No hydroureter. Bladder: Normal wall thickness. No stones. ABDOMEN: Liver: Hypodensity at the right liver, (2/39), unchanged. Most likely a benign cyst or hemangioma. Gallbladder: Several small layering gallstones. No pericholecystic fluid. Biliary ducts: No biliary dilation. Pancreas: No ductal dilation. Calcifications at the tail the pancreas. Most consistent with chronic calcific pancreatitis. Spleen: Size is within normal limits. Adrenal Glands: No adrenal nodules. Stomach and Bowel: Stomach is distended. Duodenal diverticulum. Small bowel obstruction. Gradual transition to normal caliber in the right lower quadrant. Normal appendix. Extensive diverticulosis. No diverticulitis. Peritoneum: No pneumoperitoneum. No ascites. Ventral Wall: Small fat containing umbilical hernia. Abdominal Nodes: No enlarged retroperitoneal or mesenteric lymph nodes. Vessels: Aorta and inferior vena cava are normal in size. Calcifications at the renal artery origins. PELVIS: Pelvic Organs: Unremarkable. Pelvic Nodes: Unremarkable. Miscellaneous: No inguinal hernias are seen. Bones: No suspicious osseous lesion. Extensive degenerative changes. IMPRESSION: 1. New small bowel obstruction. Possible transition point in the right abdomen. 2. No free fluid. No pneumoperitoneum. 3. Diverticulosis. Gallstones. Chronic calcific pancreatitis. No kidney stones. Comment: Findings were discussed with Dorothy Post at 7:40 p.m. Dictated by: Afshin Barillas M.D. on 06/12/2024 at 19:26 Approved by: Afshin Barillas M.D. on 06/12/2024 at 19:40 [facility] Narrative Medical decision making narrative: intermittent episodes of low blood pressure. On my evaluation patient's blood pressure has been stable with map consistently over 65. Laboratory work ordered. Laboratory work shows WBC count 15.2, hemoglobin 14.8, platelet 449, sodium 133, potassium 3.8, creatinine 2.29 (prev 1.17), potassium 10.9. Troponin undetectable x2. Patient states that he regularly takes ibuprofen for arthritic pains at home, and did receive an injection of Toradol at his last ER visit 3 days prior, however at that time he had a normal kidney function. Despite receiving Zofran patient had numerous episodes of emesis in the emergency department. With new kidney injury, lower abdominal pain, and vomiting a CT noncontrast will be ordered for assessment. CT scan shows possible small bowel obstruction with transition point suspected to be in the right lower quadrant. Call placed to Dr. Arnold of General surgery, who states that with no known intra-abdominal surgical history this is likely an ileus fromNorco use and not a true small bowel obstruction. Recommended CT with p.o. contrast to see if this reaches the colon, and will follow as consult. plan to admit for SUSANNAH and obstructive symptoms at this time. Discharge Plan Departure Patient Disposition: Admitted as Observation Clinical Impression: Acute kidney injury, Small bowel obstruction Admit Date/Time: 06/12/24 20:38 Admit Provider: Bruno Serrano
[2024-06-12 18:35] LABS: Troponin I < 0.012 ng/mL (0.01-0.034)
[2024-06-12] MEDS: LIDOCAINE VISCOUS 2% 15 ML SOLUTION PO (18:50)
[2024-06-12] MEDS: MAG HYDROX/ALUM/SIMETH 30 ML UDC PO (18:51)
[2024-06-12] MEDS: SODIUM CHLORIDE 0.9% 1,000 ML 1000 ML IV (18:51)
--- NOTE | 2024-06-12 21:25 | PM.HP.1 ---
History of Present Illness History of Present Illness Date Patient Seen: 06/12/24 Time Patient Seen: 22:50 Chief complaint: Hypotension Narrative: 73 y/o with PMH of psoriasis, GERD, HTN, hearing loss, knee replacement, back pain, with no prior history of abdominal surgeries or SBO, presented with nausea, heartburn, feeling weak. In the ED hypotensive, with SUSANNAH and SBO vs narcotic-induced ileus. He was using [place] in the last several days for back pain. It made him constipated. On admission abdomen not distended. Discussed between ED and surgery, CT with PO contrast recommended. [facility] Medical History Vision disorder Hearing loss Psoriasis (~2004) Foot pain (~1999) Ankle pain (~1964) Skin cancer (~1994) Personal history of malignant melanoma Well adult exam Surgical History Anesthesia History of total knee replacement (~2015) Family History Father History of heart disease Mother History of heart disease Social History household members: spouse Smoking Status: Current some day smoker Tobacco: How many years used: 30 quit status: has quit before second hand exposure: No alcohol intake: current Meds Home Medications and Allergies Home Medications Medication Instructions Recorded Confirmed Type clobetasol 0.05 % topical spray 1 applictn topical BID PRN 08/04/19 06/12/24 History Psoriasis hydrocodone 5 mg-acetaminophen 325 1 tab PO Q6H PRN pain #10 tabs 06/09/24 06/12/24 Rx mg tablet acetaminophen 500 mg tablet 1,000 mg PO QID PRN pain 06/12/24 06/12/24 History aspirin 81 mg tablet 81 mg PO DAILY 06/12/24 06/12/24 History lisinopril 10 mg tablet 10 mg PO DAILY Hypertension 06/12/24 06/12/24 History omeprazole 20 mg capsule,delayed 20 mg PO DAILY Acid reflux 06/12/24 06/12/24 History release Allergies Allergy/AdvReac Type Severity Reaction Status Date / Time No Known Drug Allergies Allergy Verified 06/09/24 16:24 Review of Systems Constitutional Comments: generalized weakness. No fever or chills Cardiovascular Comments: w/o chest pain Respiratory Comments: w/o shotness of breath Gastrointestinal Comments: constipated, heartburn, nausea w/o abdominal pain Genitourinary Comments: w/o dysuria Musculoskeletal Comments: back pain Exam Vital Signs (past 8 hours): - 06/12/24 15:52 06/12/24 15:55 06/12/24 15:55 Temperature 98.2 F Pulse Rate 73 82 Respiratory Rate 19 19 Blood Pressure 88/55 L 84/52 L Pulse Oximetry 98 98 Oxygen Delivery Method Room Air 06/12/24 15:56 06/12/24 15:56 06/12/24 16:00 Temperature Pulse Rate 76 Respiratory Rate 23 Blood Pressure 92/60 89/52 L Pulse Oximetry 98 Oxygen Delivery Method 06/12/24 16:00 06/12/24 16:45 06/12/24 16:45 Temperature Pulse Rate 75 78 Respiratory Rate 21 24 Blood Pressure 100/58 L Pulse Oximetry 97 94 Oxygen Delivery Method 06/12/24 16:50 06/12/24 16:50 06/12/24 16:55 Temperature Pulse Rate 87 81 Respiratory Rate 29 H 31 H Blood Pressure 98/54 L Pulse Oximetry 95 96 Oxygen Delivery Method 06/12/24 16:55 06/12/24 17:00 06/12/24 17:00 Temperature Pulse Rate 86 Respiratory Rate 26 H Blood Pressure 106/58 L 102/61 Pulse Oximetry 97 Oxygen Delivery Method 06/12/24 17:05 06/12/24 17:05 06/12/24 17:10 Temperature Pulse Rate 86 Respiratory Rate 30 H Blood Pressure 109/61 115/65 Pulse Oximetry 95 Oxygen Delivery Method 06/12/24 17:10 06/12/24 17:15 06/12/24 17:15 Temperature Pulse Rate 74 75 Respiratory Rate 28 H 28 H Blood Pressure 114/61 Pulse Oximetry 97 98 Oxygen Delivery Method 06/12/24 17:20 06/12/24 17:20 06/12/24 17:25 Temperature Pulse Rate 74 81 Respiratory Rate Blood Pressure 111/63 Pulse Oximetry 98 97 Oxygen Delivery Method 06/12/24 17:25 06/12/24 17:30 06/12/24 17:30 Temperature Pulse Rate 74 Respiratory Rate 29 H Blood Pressure 114/55 L 98/57 L Pulse Oximetry 97 Oxygen Delivery Method 06/12/24 17:35 06/12/24 17:35 06/12/24 17:40 Temperature Pulse Rate 75 Respiratory Rate 25 H Blood Pressure 98/51 L 101/56 L Pulse Oximetry 96 Oxygen Delivery Method 06/12/24 17:40 06/12/24 17:45 06/12/24 17:45 Temperature Pulse Rate 80 75 Respiratory Rate 29 H 29 H Blood Pressure 94/51 L Pulse Oximetry 96 97 Oxygen Delivery Method 06/12/24 17:50 06/12/24 17:50 06/12/24 17:55 Temperature Pulse Rate 74 78 Respiratory Rate 28 H Blood Pressure 100/61 Pulse Oximetry 97 97 Oxygen Delivery Method 06/12/24 17:55 06/12/24 18:00 06/12/24 18:00 Temperature Pulse Rate 75 Respiratory Rate 26 H Blood Pressure 100/64 100/58 L Pulse Oximetry 98 Oxygen Delivery Method 06/12/24 18:06 06/12/24 18:06 06/12/24 18:10 Temperature Pulse Rate 114 H Respiratory Rate 28 H Blood Pressure 110/65 120/67 Pulse Oximetry 95 Oxygen Delivery Method 06/12/24 18:10 06/12/24 18:16 06/12/24 18:16 Temperature Pulse Rate 89 80 Respiratory Rate 21 25 H Blood Pressure 107/66 Pulse Oximetry 95 96 Oxygen Delivery Method 06/12/24 18:20 06/12/24 18:20 06/12/24 18:25 Temperature Pulse Rate 87 Respiratory Rate 22 Blood Pressure 108/59 L 105/57 L Pulse Oximetry 94 Oxygen Delivery Method 06/12/24 18:25 06/12/24 18:30 06/12/24 18:31 Temperature Pulse Rate 82 87 84 Respiratory Rate 25 H Blood Pressure Pulse Oximetry 91 95 95 Oxygen Delivery Method 06/12/24 18:31 06/12/24 18:35 06/12/24 18:35 Temperature Pulse Rate 94 H Respiratory Rate Blood Pressure 110/68 109/67 Pulse Oximetry 95 Oxygen Delivery Method 06/12/24 19:00 06/12/24 19:15 06/12/24 19:15 Temperature Pulse Rate 98 H 88 Respiratory Rate 30 H Blood Pressure 93/57 L Pulse Oximetry 95 92 Oxygen Delivery Method Oxygen Delivery Method Room Air Const Other: in no distress HENMT Other: hearing loss Neck Other: supple Resp Other: normal respiratory effort Cardio Other: RRR GI Other: not distended Psych Other: lucid Objective ECG Impression: NSR Labs 06/12/24 15:35 06/12/24 15:35 Labs: Laboratory Results - last 24 hr 06/12/24 06/12/24 15:35 17:33 WBC 15.2 H RBC 4.64 Hgb 14.8 Hct 44.4 MCV 95.7 MCH 31.9 MCHC 33.3 RDW 13.7 Plt Count 449 H Neut % (Auto) 85.9 H Lymph % (Auto) 6.0 L [place] % (Auto) 7.8 Eos % (Auto) 0.1 L Baso % (Auto) 0.2 Neut # (Auto) 15175 H Lymph # (Auto) 900 L [place] # (Auto) 1200 H Eos # (Auto) 0 Baso # (Auto) 0 PT 10.4 INR 0.9 APTT 30 Sodium 133 L Potassium 3.8 Chloride 96 L Carbon Dioxide 24 BUN 25 H Creatinine 2.28 H Estimated GFR 30 L BUN/Creatinine Ratio 11.0 Glucose 153 H Calcium 10.9 H Magnesium 2.2 Total Bilirubin 1.0 AST 28 ALT 23 Alkaline Phosphatase 62 Total Creatine Kinase 37 L Troponin I < 0.012 < 0.012 NT-Pro-B Natriuret Pep 526 H Total Protein 7.9 Albumin 4.8 Globulin 3.1 Albumin/Globulin Ratio 1.5 Lipase 29 Assessment & Plan Assessment and plan (1) Small bowel obstruction: Status: Acute (2) SUSANNAH (acute kidney injury): Status: Acute (3) Psoriasis: Status: Chronic (4) Back pain: Status: Acute (5) Scoliosis: Problem details: ??? Status: Acute (6) GERD (gastroesophageal reflux disease): Status: Acute (7) HTN (hypertension): Status: Acute Assessment & Plan narrative: SBO vs Ileus - CT with PO contrast - Sx follow up - NPO, NGT for suction if indicated Scoliosis / Back Pain - prn iv acetaminophen, dilaudid SUSANNAH / CKD / HTN - prerenal, NS - likely CKD stage 3 - Lisinopril on hold - hypotensive on admission GERD / GI prophylaxis - Protonix Psoriasis - clabetasol DVT prophylaxis - SCDs Time-Based Coding :: [TOTAL MINUTES] spent with patient and on the chart (including review of chart, obtaining history, exam, reviewing outside data, placing orders, documenting exam and treatment plan, and counseling patient) on [DATE].
[2024-06-12] MEDS: SODIUM CHLORIDE 0.9% 1,000 ML 100 ML IV (22:28)
--- NOTE | 2024-06-13 00:26 | PC.NURSE ---
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 RN administered Zofran IV Per EMAR. Pt had two loose watery BM episodes, Pt flushed before RN could visualize. Catch in place in toilet and Pt educated that next BM to use the catch device.
[2024-06-13 01:30] VITALS: BP 102/64; PULSE 89; RESP 20; TEMP 36.7; O2SAT 92
[2024-06-13] MEDS: PANTOPRAZOLE 40 MG VIAL IV ×2 (02:05→08:31)
[2024-06-13 02:23] LABS: Appearance Urine UA CLEAR; Bilirubin Urine UA 1+ (NEGATIVE); Glucose Urine UA NEGATIVE (Negative); Ketones Urine UA NEGATIVE (NEGATIVE); Leukocyte Esterase Urine UA NEGATIVE (NEGATIVE); Nitrite Urine UA POSITIVE (Negative); Occult Blood Urine UA 1+ (Negative); Protein Urine UA NEGATIVE (Negative); Urobilinogen Urine UA 0.2 E.U./dL (0.2)
[2024-06-13 02:37] LABS: Color Urine UA Dark Yellow
[2024-06-13 02:38] LABS: Ictotest Urine Negative (Negative); RBC Urine 10-30/HPF (0-5/HPF); Urine Volume 10mL (spun); WBC Urine 1-5/HPF (0-5/HPF)
[2024-06-13 02:39] LABS: Amorphous Sediment Urine 1+; Squamous Epithelial Cell Urine 1-5 /HPF (0-5/HPF); Transitional Epi Cells Urine 0-1/HPF (0-5/HPF)
[2024-06-13 02:40] LABS: Bacteria Urine Few (2-10); Culture Indicated Urine Specimen Cultured; Hyaline Casts Urine 0-1/LPF; Mucus Urine 1+ (Negative)
[2024-06-13 05:33] VITALS: BP 134/76; PULSE 96; RESP 20; TEMP 36.7; O2SAT 97
[2024-06-13 05:47] LABS: Add Manual Diff / Slide Review NO; Basophils Absolute Auto 100 /uL (0-100); Basophils Percent Auto 0.3 % (0-2); Eosinophils Absolute Auto 100 /uL (0-450); Eosinophils Percent Auto 0.5 % (2-4); Hematocrit 38.6 % (41-53); Hemoglobin 12.9 g/dL (13.5-17.5); Lymphocytes Absolute Auto 1000 /uL (1100-4500); Lymphocytes Percent Auto 6.7 % (25-40); Mean Corpuscular HGB Conc 33.4 % (30-36); Mean Corpuscular Volume 95.8 fL (80-100); Monocytes Absolute Auto 1300 /uL (0-900); Monocytes Percent Auto 8.5 % (3-14); Neutrophils Absolute Auto 12800 /uL (1500-7000); Platelet Count 387 X10^3/uL (150-400); Red Blood Cell Count 4.02 X10^6/uL (4.5-5.9); Red Cell Distribution Width 13.4 % (11.6-14.8); White Blood Cell Count 15.2 X10^3/uL (4.5-11.0)
[2024-06-13 05:59] LABS: BUN Creatinine Ratio 14.3 (6-22); Blood Urea Nitrogen 30 mg/dL (9-20); Calcium 9.1 mg/dL (8.4-10.2); Carbon Dioxide 20 mmol/L (22-32); Chloride 109 mmol/L (98-107); Estimated Glomerular Filt Rate 33 mL/min (>60); Glucose 117 mg/dL (80-110); HEMOLYSIS < 15 (0-50); Potassium 3.7 mmol/L (3.4-5.1); Sodium 137 mmol/L (137-145)
--- NOTE | 2024-06-13 07:45 | P.PN_ITS ---
Subjective Subjective Interval history: Summary: 73 y/o with PMH of psoriasis, GERD, HTN, hearing loss, knee replacement, back pain, with no prior history of abdominal surgeries or SBO, presented with nausea, heartburn, feeling weak. In the ED hypotensive, with SUSANNAH and SBO vs narcotic-induced ileus. He was using [place] in the last several days for back pain. It made him constipated. On admission abdomen not distended. Discussed between ED and surgery, CT with PO contrast recommended. S: He was doing better, he was had multiple bowel movements with his Gastrografin. He was hungry and denies any nausea. No history of abdominal surgery. Exam Vital Signs (past 8 hours): - 06/13/24 01:30 06/13/24 02:00 06/13/24 05:33 Temperature 98.0 F 98.0 F Pulse Rate 89 96 H Respiratory Rate 20 20 Blood Pressure 102/64 134/76 Pulse Oximetry 92 97 Oxygen Delivery Method Room Air Oxygen Flow Rate 0 0 Oxygen Delivery Method Room Air Oxygen Flow Rate 0 Narrative Exam Narrative: NAD, alert and oriented. Fluent speech. Lungs are clear, normal rate and effort. Heart is regular, no murmur gallop or rub. Abdomen is soft, non distended. Normal tones. Extremities are free of edema. Objective ECG Impression: NSR Imaging CT scan - abdomen: Radiologist's impression: 1. New small bowel obstruction. Possible transition point in the right abdomen. 2. No free fluid. No pneumoperitoneum. 3. Diverticulosis. Gallstones. Chronic calcific pancreatitis. No kidney stones. Chest x-ray: Radiologist's impression: No acute cardiopulmonary abnormality is seen. Labs 06/13/24 05:15 06/13/24 05:15 Labs: Laboratory Results - last 24 hr 06/12/24 06/12/24 06/13/24 15:35 17:33 02:12 WBC 15.2 H RBC 4.64 Hgb 14.8 Hct 44.4 MCV 95.7 MCH 31.9 MCHC 33.3 RDW 13.7 Plt Count 449 H Neut % (Auto) 85.9 H Lymph % (Auto) 6.0 L [place] % (Auto) 7.8 Eos % (Auto) 0.1 L Baso % (Auto) 0.2 Neut # (Auto) 11808 H Lymph # (Auto) 900 L [place] # (Auto) 1200 H Eos # (Auto) 0 Baso # (Auto) 0 PT 10.4 INR 0.9 APTT 30 Sodium 133 L Potassium 3.8 Chloride 96 L Carbon Dioxide 24 BUN 25 H Creatinine 2.28 H Estimated GFR 30 L BUN/Creatinine Ratio 11.0 Glucose 153 H Calcium 10.9 H Magnesium 2.2 Total Bilirubin 1.0 AST 28 ALT 23 Alkaline Phosphatase 62 Total Creatine Kinase 37 L Troponin I < 0.012 < 0.012 NT-Pro-B Natriuret Pep 526 H Total Protein 7.9 Albumin 4.8 Globulin 3.1 Albumin/Globulin Ratio 1.5 Lipase 29 Urine Color Dark yellow Urine Appearance Clear Urine pH 5.0 Ur Specific [place] 1.020 Urine Protein Negative Urine Glucose (UA) Negative Urine Ketones Negative Urine Occult Blood 1+ H Urine Nitrate Positive H Urine Bilirubin 1+ H Ur Bilirubin Confirm Negative Urine Urobilinogen 0.2 Ur Leukocyte Esterase Negative Urine RBC 10-30/hpf H Urine WBC 1-5/hpf Ur Squamous Epith Cells 1-5 /hpf Ur Transition Epith Cell 0-1/hpf Amorphous Sediment 1+ Urine Bacteria Few (2-10) H Hyaline Casts 0-1/lpf Urine Mucus 1+ H Ur Culture Indicated? Specimen cultured Vol Urine Centrifuged 10ml (spun) 06/13/24 05:15 WBC 15.2 H RBC 4.02 L Hgb 12.9 L Hct 38.6 L MCV 95.8 MCH 32.0 MCHC 33.4 RDW 13.4 Plt Count 387 Neut % (Auto) 84.0 H Lymph % (Auto) 6.7 L [place] % (Auto) 8.5 Eos % (Auto) 0.5 L Baso % (Auto) 0.3 Neut # (Auto) 06258 H Lymph # (Auto) 1000 L [place] # (Auto) 1300 H Eos # (Auto) 100 Baso # (Auto) 100 PT INR APTT Sodium 137 Potassium 3.7 Chloride 109 H Carbon Dioxide 20 L BUN 30 H Creatinine 2.10 H Estimated GFR 33 L BUN/Creatinine Ratio 14.3 Glucose 117 H Calcium 9.1 Magnesium Total Bilirubin AST ALT Alkaline Phosphatase Total Creatine Kinase Troponin I NT-Pro-B Natriuret Pep Total Protein Albumin Globulin Albumin/Globulin Ratio Lipase Urine Color Urine Appearance Urine pH Ur Specific [place] Urine Protein Urine Glucose (UA) Urine Ketones Urine Occult Blood Urine Nitrate Urine Bilirubin Ur Bilirubin Confirm Urine Urobilinogen Ur Leukocyte Esterase Urine RBC Urine WBC Ur Squamous Epith Cells Ur Transition Epith Cell Amorphous Sediment Urine Bacteria Hyaline Casts Urine Mucus Ur Culture Indicated? Vol Urine Centrifuged [facility] Medical History Vision disorder Hearing loss Psoriasis (~2004) Foot pain (~1999) Ankle pain (~1964) Skin cancer (~1994) Personal history of malignant melanoma Well adult exam Surgical History Anesthesia History of total knee replacement (~2015) Family History Father History of heart disease Mother History of heart disease Social History household members: spouse Smoking Status: Current some day smoker Tobacco: How many years used: 30 quit status: has quit before second hand exposure: No alcohol intake: current Assessment & Plan Assessment & Plan narrative: 1. SBO vs Ileus, present on admission and active. 2. SUSANNAH, present on admission and active. 3. HTN, present on admission and stable. 4. GERD, present on admission and stable. 5. Psoriasis, present on admission and stable. 6. Scoliosis / Back Pain, present on admission and active. - prn iv acetaminophen, dilaudid PLAN: -advance diet and see how he does. -repeat BMP at 3:00 p.m. to reassess renal function. -possible discharge home later today. SHARRON is June 13 or . Full resuscitation Dispo: Home. DVT prophylaxis - SCDs Time-Based Coding :: [TOTAL MINUTES] spent with patient and on the chart (including review of chart, obtaining history, exam, reviewing outside data, placing orders, documenting exam and treatment plan, and counseling patient) on [DATE]. Quality VTE Deep Vein Thrombosis/Pulmonary Embolism Present on Admission: No
[2024-06-13 08:00] VITALS: BP 118/72; PULSE 75; RESP 18; TEMP 37.7; O2SAT 96
[2024-06-13] MEDS: SODIUM CHLORIDE 0.9% 1,000 ML 100 ML IV (08:32)
[2024-06-13] MEDS: SODIUM CHLORIDE 0.9% FLUSH 10 ML IV (08:32)
--- NOTE | 2024-06-13 11:07 | DI.RAD.S_ITS ---
PROCEDURE: XR ABDOMEN MIN 2V INDICATIONS: follow contrast, SBO TECHNIQUE: 2 views of the abdomen were acquired. COMPARISON: None. FINDINGS: Surgical changes and devices: None. Bowel: No pneumoperitoneum. Distended loops of small bowel are noted measuring up to 5.4 cm in diameter, considered enlarged beyond 3 cm. No complete obstruction is demonstrated, with contrast in the colon extending to the rectum. Soft tissues: No masses; visualized solid organ contours appear normal in size. No suspicious abdominal calcifications. Bones: No suspicious bony abnormalities. IMPRESSION: Gaseous distention of the small bowel possibly representing partial obstruction or adynamic ileus. Dictated by: Javon Cheung M.D. on 06/13/2024 at 12:39 Approved by: Javon Cheung M.D. on 06/13/2024 at 12:41
--- NOTE | 2024-06-13 11:35 | CM.DANOTE ---
DCP Assessment Note: Pt is a 73yo male, resident [facility], is admitted for SUSANNAH and SBO. Pt lives in a house with his , Kinza. Pt's Primary Care Provider is Dr. Tay Sol MD and insurance is Medicare and [employer]. Reviewed chart and team rounds for pt's medical status and initial discharge needs. DCP met w/patient at bedside; introduced self and role. Patient was found in bed, alert and oriented, cooperative with assessment. Pt confirmed living situation and good support in . Pt expressed preference in returning home, declined any other referrals needed in the community. Pt does not report a previous hx of HH or SNF Rehab. Plan: Pending medical clearance, anticipating discharge home with spouse. CM team will follow closely for coordination of discharge plans. 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 Yes Advance Directives on File No History Provided By Patient,Family Member,Medical Record Has Patient been admitted in last 30 No days? Prior Living Arrangements House Household Members spouse Type of transporation used prior to Drives own vehicle admit Independent with ADL's Yes Is patient alert and oriented? Yes Caregiver for Another No Barriers to Discharge No Discharge Plan Home Referrals Initiated None needed Whiteboard Updated in Patient Room with Yes name and ext. # of Heavy Equipment Field Mechanic Comment [phone] Review Status In Process Please Provide Date Initial DC 06/13/24 Assessment Was Performed Next Review Type Continued Stay Review
[2024-06-13 12:00] VITALS: BP 125/71; PULSE 79; RESP 18; TEMP 36.9; O2SAT 96
--- NOTE | 2024-06-13 15:36 | PM.CN ---
History of Present Illness Consult details Date Patient Seen: 06/13/24 Time Patient Seen: 15:36 Chief complaint: Hypotension Reason for consult: Question of bowel obstruction Requesting provider: Dorothy Post Narrative: this is a 73-year-old white male who presents with abdominal distention nausea. He has had several medical encounters over the past week including receiving hydrocodone for some back pain, and then subsequently having a dental cleaning with topical anesthesia. He presented to the ER with abdominal pain nausea and a CT scan was suggestive of a bowel obstruction. He has no history of abdominal surgery. There was no contrast given with the CT scan. As such, I ordered a Gastrografin study and the x-ray today shows Gastrografin within the colon. He is currently eating a deli meat sandwich without nausea vomiting abdominal pain or distention. Meds Home Medications and Allergies Home Medications Medication Instructions Recorded Confirmed Type clobetasol 0.05 % topical spray 1 applictn topical BID PRN 08/04/19 06/12/24 History Psoriasis hydrocodone 5 mg-acetaminophen 325 1 tab PO Q6H PRN pain #10 tabs 06/09/24 06/12/24 Rx mg tablet acetaminophen 500 mg tablet 1,000 mg PO QID PRN pain 06/12/24 06/12/24 History aspirin 81 mg tablet 81 mg PO DAILY 06/12/24 06/12/24 History lisinopril 10 mg tablet 10 mg PO DAILY Hypertension 06/12/24 06/12/24 History omeprazole 20 mg capsule,delayed 20 mg PO DAILY Acid reflux 06/12/24 06/12/24 History release Allergies Allergy/AdvReac Type Severity Reaction Status Date / Time No Known Drug Allergies Allergy Verified 06/09/24 16:24 Review of Systems Review of Systems ROS: Yes All systems reviewed with the patient and are negative except as otherwise documented Constitutional Constitutional: Reports system reviewed and no additional complaints, except as documented Eyes Eyes: Reports system reviewed and no additional complaints, except as documented ENT Ears, Nose, Mouth, and Throat: Yes system reviewed and no additional complaints, except as documented Cardiovascular Cardiovascular: Reports system reviewed and no additional complaints, except as documented Respiratory Respiratory: Reports system reviewed and no additional complaints, except as documented Gastrointestinal Gastrointestinal: Reports system reviewed and no additional complaints, except as documented Genitourinary Genitourinary: Reports system reviewed and no additional complaints, except as documented Musculoskeletal Musculoskeletal: Reports system reviewed and no additional complaints, except as documented Integumentary/Breasts Skin/Breast: Reports system reviewed and no additional complaints, except as documented Neurologic Neurologic: Reports system reviewed and no additional complaints, except as documented Psychiatric Psychiatric: Reports system reviewed and no additional complaints, except as documented Endocrine Endocrine: Reports system reviewed and no additional complaints, except as documented Hematologic/Lymphatic Hematologic/Lymphatic: Reports system reviewed and no additional complaints, except as documented Allergic/Immunologic Allergic/Immunologic: Reports system reviewed and no additional complaints, except as documented Exam Vital Signs (past 8 hours): - 06/13/24 08:00 06/13/24 08:15 06/13/24 12:00 Temperature 100 F H 98.4 F Pulse Rate 75 79 Respiratory Rate 18 18 Blood Pressure 118/72 125/71 Pulse Oximetry 96 96 Oxygen Delivery Method Room Air Oxygen Flow Rate 0 0 Oxygen Delivery Method Room Air Oxygen Flow Rate 0 Narrative Exam Narrative: Gen: NAD, sitting comfortably in bed, appears well HEENT: Sclera are anicteric, head is normocephalic and atraumatic, trachea is midline. CV: RRR, no JVD Resp: clear to auscultation bilaterally, equal chest wall movement bilaterally Abd: soft, nontender, normoactive bowel sounds Ext: no edema, full range of motion Neuro: Cranial nerves II-XII grossly intact, no focal deficits Skin: No erythema or ecchymosis Objective Imaging CT scan - abdomen: My impression: CT scan of the abdomen independently reviewed by me does show a change in caliber of the small bowel, but not clearly a transition point. He has a fat containing umbilical hernia that does not involve the bowel. Follow-up contrast study today shows contrast in the colon. Labs 06/13/24 05:15 06/13/24 05:15 Labs: Laboratory Results - last 24 hr 06/12/24 06/12/24 06/13/24 15:35 17:33 02:12 WBC 15.2 H RBC 4.64 Hgb 14.8 Hct 44.4 MCV 95.7 MCH 31.9 MCHC 33.3 RDW 13.7 Plt Count 449 H Neut % (Auto) 85.9 H Lymph % (Auto) 6.0 L [place] % (Auto) 7.8 Eos % (Auto) 0.1 L Baso % (Auto) 0.2 Neut # (Auto) 00053 H Lymph # (Auto) 900 L [place] # (Auto) 1200 H Eos # (Auto) 0 Baso # (Auto) 0 PT 10.4 INR 0.9 APTT 30 Sodium 133 L Potassium 3.8 Chloride 96 L Carbon Dioxide 24 BUN 25 H Creatinine 2.28 H Estimated GFR 30 L BUN/Creatinine Ratio 11.0 Glucose 153 H Calcium 10.9 H Magnesium 2.2 Total Bilirubin 1.0 AST 28 ALT 23 Alkaline Phosphatase 62 Total Creatine Kinase 37 L Troponin I < 0.012 < 0.012 NT-Pro-B Natriuret Pep 526 H Total Protein 7.9 Albumin 4.8 Globulin 3.1 Albumin/Globulin Ratio 1.5 Lipase 29 Urine Color Dark yellow Urine Appearance Clear Urine pH 5.0 Ur Specific [place] 1.020 Urine Protein Negative Urine Glucose (UA) Negative Urine Ketones Negative Urine Occult Blood 1+ H Urine Nitrate Positive H Urine Bilirubin 1+ H Ur Bilirubin Confirm Negative Urine Urobilinogen 0.2 Ur Leukocyte Esterase Negative Urine RBC 10-30/hpf H Urine WBC 1-5/hpf Ur Squamous Epith Cells 1-5 /hpf Ur Transition Epith Cell 0-1/hpf Amorphous Sediment 1+ Urine Bacteria Few (2-10) H Hyaline Casts 0-1/lpf Urine Mucus 1+ H Ur Culture Indicated? Specimen cultured Vol Urine Centrifuged 10ml (spun) 06/13/24 05:15 WBC 15.2 H RBC 4.02 L Hgb 12.9 L Hct 38.6 L MCV 95.8 MCH 32.0 MCHC 33.4 RDW 13.4 Plt Count 387 Neut % (Auto) 84.0 H Lymph % (Auto) 6.7 L [place] % (Auto) 8.5 Eos % (Auto) 0.5 L Baso % (Auto) 0.3 Neut # (Auto) 26344 H Lymph # (Auto) 1000 L [place] # (Auto) 1300 H Eos # (Auto) 100 Baso # (Auto) 100 PT INR APTT Sodium 137 Potassium 3.7 Chloride 109 H Carbon Dioxide 20 L BUN 30 H Creatinine 2.10 H Estimated GFR 33 L BUN/Creatinine Ratio 14.3 Glucose 117 H Calcium 9.1 Magnesium Total Bilirubin AST ALT Alkaline Phosphatase Total Creatine Kinase Troponin I NT-Pro-B Natriuret Pep Total Protein Albumin Globulin Albumin/Globulin Ratio Lipase Urine Color Urine Appearance Urine pH Ur Specific [place] Urine Protein Urine Glucose (UA) Urine Ketones Urine Occult Blood Urine Nitrate Urine Bilirubin Ur Bilirubin Confirm Urine Urobilinogen Ur Leukocyte Esterase Urine RBC Urine WBC Ur Squamous Epith Cells Ur Transition Epith Cell Amorphous Sediment Urine Bacteria Hyaline Casts Urine Mucus Ur Culture Indicated? Vol Urine Centrifuged [facility] Medical History Vision disorder Hearing loss Psoriasis (~2004) Foot pain (~1999) Ankle pain (~1964) Skin cancer (~1994) Personal history of malignant melanoma Well adult exam Surgical History Anesthesia History of total knee replacement (~2015) Family History Father History of heart disease Mother History of heart disease Social History household members: spouse Tobacco & Substance Use Smoking Status: Current some day smoker Tobacco: How many years used: 30 quit status: has quit before second hand exposure: No alcohol intake: current Assessment & Plan Assessment and plan (1) Adynamic ileus: Status: Acute Assessment & Plan narrative: This appears to be an adynamic ileus that is resolving related to narcotic administration and dehydration. I do not suspect a small bowel obstruction. His creatinine has somewhat improved from yesterday to today. No plans for surgical intervention. We will sign off. Time-Based Coding :: [TOTAL MINUTES] spent with patient and on the chart (including review of chart, obtaining history, exam, reviewing outside data, placing orders, documenting exam and treatment plan, and counseling patient) on [DATE]. PROFEE Charge Codes Inpatient or Observation consultation: 18854
[2024-06-13 16:58] VITALS: BP 120/63; PULSE 73; RESP 19; TEMP 36.8; O2SAT 94
--- NOTE | 2024-06-13 17:20 | PM.DS.1 ---
History of Present Illness History of Present Illness Chief complaint: Hypotension Narrative: From H&P: 73 y/o with PMH of psoriasis, GERD, HTN, hearing loss, knee replacement, back pain, with no prior history of abdominal surgeries or SBO, presented with nausea, heartburn, feeling weak. In the ED hypotensive, with SUSANNAH and SBO vs narcotic-induced ileus. He was using Polvadera in the last several days for back pain. It made him constipated. On admission abdomen not distended. Discussed between ED and surgery, CT with PO contrast recommended. Discharge Providers Provider Date of admission: 06/12/24 20:38 Discharge Date: 06/13/24 Primary care physician: Tay Sol MD Consults: 06/12/24 20:35 Consult to General Surgery Stat Comment: Consulting Provider: Sam Arnold Reason for consultation: SBO Has provider been notified: Yes Discharge provider: Lebron Dong MD Summary Hospital Course Discharge Diagnosis: 1. SBO vs Ileus, present on admission and resolved. 2. SUSANNAH, present on admission and improved. 3. HTN, present on admission and stable. 4. GERD, present on admission and stable. 5. Psoriasis, present on admission and stable. 6. Scoliosis / Back Pain, present on admission and active. - prn iv acetaminophen, dilaudid Hospital Course: He was admitted and have fairly immediate improvement of his bowel symptoms. The patient required no specific intervention other than Gastrografin challenge. He had multiple bowel movements. His SUSANNAH improved with a creatinine of 1.5 prior to discharge. He was seen by surgery and felt to be stable for discharge with close follow up with his PCP. Status at Discharge Cognitive/behavioral status at discharge: oriented Functional status at discharge: independent ambulation Overall status at discharge: patient is back to baseline Time Spent with Patient Time spent: Less than 30 minutes Exam Vital Signs (past 8 hours): - 06/13/24 12:00 06/13/24 16:58 Temperature 98.4 F 98.3 F Pulse Rate 79 73 Respiratory Rate 18 19 Blood Pressure 125/71 120/63 Pulse Oximetry 96 94 Oxygen Flow Rate 0 0 Oxygen Delivery Method Room Air Oxygen Flow Rate 0 Narrative Exam Narrative: NAD, alert and oriented. Fluent speech. Lungs are clear, normal rate and effort. Heart is regular, no murmur gallop or rub. Abdomen is soft, non distended. Extremities are free of edema. Objective Imaging Multiple studies:: Radiologist's impression: Abdomen x-ray (06/13): Gaseous distention of the small bowel possibly representing partial obstruction or adynamic ileus. Abdomen pelvis CT: 1. New small bowel obstruction. Possible transition point in the right abdomen. 2. No free fluid. No pneumoperitoneum. 3. Diverticulosis. Gallstones. Chronic calcific pancreatitis. No kidney stones. Chest x-ray: No acute cardiopulmonary abnormality is seen. Gastrografin study (06/12): Again seen are moderately distended loops of small bowel filled with oral contrast. Oral contrast is also seen in the stomach, indicating significantly delayed transit versus enteric gastro reflux. Colonic bowel gas is seen, but not definitely filled with oral contrast. Differential remains obstruction versus ileus. Osseous degenerative changes. Labs 06/13/24 05:15 06/13/24 18:10 Labs: Laboratory Results - last 24 hr 06/12/24 06/13/24 06/13/24 17:33 02:12 05:15 WBC 15.2 H RBC 4.02 L Hgb 12.9 L Hct 38.6 L MCV 95.8 MCH 32.0 MCHC 33.4 RDW 13.4 Plt Count 387 Neut % (Auto) 84.0 H Lymph % (Auto) 6.7 L [place] % (Auto) 8.5 Eos % (Auto) 0.5 L Baso % (Auto) 0.3 Neut # (Auto) 60754 H Lymph # (Auto) 1000 L [place] # (Auto) 1300 H Eos # (Auto) 100 Baso # (Auto) 100 Sodium 137 Potassium 3.7 Chloride 109 H Carbon Dioxide 20 L BUN 30 H Creatinine 2.10 H Estimated GFR 33 L BUN/Creatinine Ratio 14.3 Glucose 117 H Calcium 9.1 Troponin I < 0.012 Urine Color Dark yellow Urine Appearance Clear Urine pH 5.0 Ur Specific [place] 1.020 Urine Protein Negative Urine Glucose (UA) Negative Urine Ketones Negative Urine Occult Blood 1+ H Urine Nitrate Positive H Urine Bilirubin 1+ H Ur Bilirubin Confirm Negative Urine Urobilinogen 0.2 Ur Leukocyte Esterase Negative Urine RBC 10-30/hpf H Urine WBC 1-5/hpf Ur Squamous Epith Cells 1-5 /hpf Ur Transition Epith Cell 0-1/hpf Amorphous Sediment 1+ Urine Bacteria Few (2-10) H Hyaline Casts 0-1/lpf Urine Mucus 1+ H Ur Culture Indicated? Specimen cultured Vol Urine Centrifuged 10ml (spun) PFSH Medical History Vision disorder Hearing loss Psoriasis (~2004) Foot pain (~1999) Ankle pain (~1964) Skin cancer (~1994) Personal history of malignant melanoma Well adult exam Surgical History Anesthesia History of total knee replacement (~2015) Family History Father History of heart disease Mother History of heart disease Social History household members: spouse Smoking Status: Current some day smoker Tobacco: How many years used: 30 quit status: has quit before second hand exposure: No alcohol intake: current Discharge Assessment & Plan Assessment and Plan Assessment: 1. SBO vs Ileus, present on admission and resolved. 2. SUSANNAH, present on admission and improved. Plan of Treatment: Discharge home, soft mechanical low residue diet for the weekend and plenty of fluids. Close follow up with PCP. Please return to ER for recurrent abdominal symptoms including nausea, vomiting, or abdominal pain. Discharge Plan Discharge Plan Patient Disposition: Home Provider Discharge Comment: Symptoms improved, stable for discharge home. Discharge orders & Medications Prescriptions: Continued clobetasol 0.05 % spray,non-aerosol 1 applictn TOP BID PRN (Reason: Psoriasis ) lisinopril 10 mg tablet 10 mg PO DAILY omeprazole 20 mg capsule,delayed release(DR/EC) 20 mg PO DAILY aspirin 81 mg Tablet 81 mg PO DAILY acetaminophen 500 mg Tablet 1,000 mg PO QID PRN (Reason: pain) hydrocodone-acetaminophen 5-325 mg tablet 1 tab PO Q6H PRN (Reason: pain) Qty: 10 0RF Follow up/Referrals: Tay Sol MD [Primary Care Provider] - Diet/Activity/Treatments Diet: Diet as Tolerated Visit Report/Discharge Packet Instructions: DI for Constipation Stand Alone Forms: Patient Portal/API Discharge Data Primary Care Provider: Tay Sol Quality VTE Deep Vein Thrombosis/Pulmonary Embolism Present on Admission: No
[2024-06-13] MEDS: INFLUENZA HD VACCINE 0.5 ML SYRINGE IM (18:02)
--- NOTE | 2024-06-13 18:27 | PC.NURSE ---
Pt discharged home at 1825, escorted off floor in wheelchair accompanied by spouse and hospital staff. IV removed, discharge teaching completed including follow up appointments and worsening symptoms. Patient left the floor with all belongings.
[2024-06-13 18:32] LABS: BUN Creatinine Ratio 18.4 (6-22); Blood Urea Nitrogen 29 mg/dL (9-20); Calcium 8.8 mg/dL (8.4-10.2); Carbon Dioxide 23 mmol/L (22-32); Chloride 112 mmol/L (98-107); Estimated Glomerular Filt Rate 46 mL/min (>60); Glucose 107 mg/dL (80-110); HEMOLYSIS < 15 (0-50); Potassium 3.6 mmol/L (3.4-5.1); Sodium 138 mmol/L (137-145)
== END 2024-06-13 18:28 | disposition home or self-care (01) | DRG 389 ==
LOC: ED 20:31 → AC 20:38
PROVIDERS: Emergency Medicine; Hospitalist; Admitting Provider Internal Medicine; Emergency Provider Emergency Medicine; PCP Internal Medicine; Referring Provider Emergency Medicine; Visit Provider Internal Medicine
DX: K56.609 Unspecified intestinal obstruction, unspecified as to partial versus complete obstruction (principal); N17.9 Acute kidney failure, unspecified; K56.0 Paralytic ileus; F17.200 Nicotine dependence, unspecified, uncomplicated; L40.9 Psoriasis, unspecified; K21.9 Gastro-esophageal reflux disease without esophagitis; M41.9 Scoliosis, unspecified; I12.9 Hypertensive chronic kidney disease with stage 1 through stage 4 chronic kidney disease, or unspecified chronic kidney disease; N18.30 Chronic kidney disease, stage 3 unspecified; I95.9 Hypotension, unspecified; Z23 Encounter for immunization
CPT/HCPCS: 36415; 71045; 74018; 74019; 74176; 80048; 80053; 81001; 82550; 83690; 83735; 83880; 84484; 85025; 85610; 85730; 87086; 90471; 90662; 93005; 96361; 96374; 96375; 99284; 99285; J2405; J2470; J2765

== ENCOUNTER 2024-06-22 16:40 | Emergency (ER) | payer MEDICARE, OTHER, SELFPAY ==
[2024-06-12 21:38] VITALS: BMI 26.7
[2024-06-22 16:48] VITALS: BP 134/70; PULSE 75; RESP 16; TEMP 36.8; O2SAT 98; BMI 25.3
--- NOTE | 2024-06-22 16:56 | EKG_ITS ---
[address] [address] Test Date: 2024-06-22 Pat Name: Kolby Núñez Department: 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
--- NOTE | 2024-06-22 16:58 | ED_ITS ---
HPI - Abdominal Pain <Dorothy Gabriel DO - Last Filed: 06/23/24 07:17> General Chief Complaint: Abdominal Pain Stated Complaint: abd pain Time Seen by Provider: 06/22/24 16:57 Source: patient, RN notes reviewed and old records reviewed Mode of arrival: Family Vehicle Limitations: no limitations History of Present Illness HPI narrative: 73-year-old male history of hypertension on lisinopril, psoriasis on topical therapy presents with complaint of abdominal pain was seen here on 06/09 06/12 with found to have bowel obstruction on CT imaging 06/11/2021 and admitted as observation with acute kidney injury, patient was admitted and discharged on 06/13/2024 for SBO versus ileus SUSANNAH and had improvement with Gastrografin challenge as well as improvement of his creatinine. Patient presents with complaint of abdominal pain he describes as left-sided radiates towards the back. Similar to his prior episodes. He is concern for pancreatitis although he does not have any epigastric or upper back pain. Patient states he noticed on his CT imaging it mentioned pancreatitis during his hospitalization. He has been drinking liquid diet has not been having any solids. Had a bowel movement 2 or 3 days ago after taking magnesium citrate. He has been passing flatus. He has not had any nausea or vomiting. He noticed there was an area in the left side that was sort of pushed out about 2 days ago little bit red the size of a baked potato sort of went away came back a little bit this morning was not quite as pronounced and then resolved again. Denies any syncope, no chest pain, no shortness of breath, denies any urinary symptoms. States he takes lisinopril 10 mg daily, omeprazole 20 mg, aspirin 81 mg and uses a topical spray for psoriasis. Has had prior bilateral knee and ankle surgeries. No prior abdominal surgeries. No known drug allergies. Occasional tobacco, drinks at least 3 alcoholic drinks daily states he used to drink. No recreational drugs. His primary care physician is through Medicine. He has a appointment with Dr. Rhoda Bryant of the local general surgeon for follow up in about 10 days. Related Data Home Medications Medication Instructions Recorded Confirmed clobetasol 0.05 % topical spray 1 applictn topical BID PRN 08/04/19 06/12/24 Psoriasis acetaminophen 500 mg tablet 1,000 mg PO QID PRN pain 06/12/24 06/12/24 aspirin 81 mg tablet 81 mg PO DAILY 06/12/24 06/12/24 lisinopril 10 mg tablet 10 mg PO DAILY Hypertension 06/12/24 06/12/24 omeprazole 20 mg capsule,delayed 20 mg PO DAILY Acid reflux 06/12/24 06/12/24 release Previous Rx's Medication Instructions Recorded hydrocodone 5 mg-acetaminophen 325 1 tab PO Q6H PRN pain #10 tabs 06/09/24 mg tablet gabapentin 300 mg capsule 300 mg PO BID #60 caps 06/22/24 hyoscyamine sulfate 0.125 mg 0.125 mg PO BID-QID PRN dyspepsia 06/22/24 disintegrating tablet #30 tabs Allergies Allergy/AdvReac Type Severity Reaction Status Date / Time No Known Drug Allergies Allergy Verified 06/22/24 16:53 Review of Systems <Dorothy Gabriel DO - Last Filed: 06/23/24 07:17> Review of Systems ROS Unobtainable: All systems reviewed & are unremarkable except as noted in HPI and below Patient History <Dorothy Gabriel DO - Last Filed: 06/23/24 07:17> Medical History Vision disorder Hearing loss Psoriasis (~2004) Foot pain (~1999) Ankle pain (~1964) Skin cancer (~1994) Personal history of malignant melanoma Well adult exam Surgical History Anesthesia History of total knee replacement (~2015) Family History Father History of heart disease Mother History of heart disease Social History household members: spouse Smoking Status: Current some day smoker Tobacco: How many years used: 30 quit status: has quit before second hand exposure: No alcohol intake: current Smoking Status: Current some day smoker tobacco type: cigarettes alcohol intake frequency: 0-2 drinks per day Substance Use Type: does not use Exam <Dorothy Gabriel DO - Last Filed: 06/23/24 07:17> Narrative Exam Narrative: GENERAL: Alert and oriented x three, well-appearing male in mild distress HEENT: Head normocephalic, atraumatic, EOMI, pupils reactive, face symmetric, moist mucous membranes NECK: Supple, full range of motion CARDIOVASCULAR: Regular rate and rhythm without murmurs, rubs or gallops. RESPIRATORY: Breath sounds equal bilaterally, no wheezes rales or rhonchi. ABDOMEN: Soft, nontender. Nondistended. Normoactive bowel sounds all 4 quadrants. No guarding or rebound, rigidity, no mass, no palpable hernia or defect on exam. : No CVA tenderness EXTREMITIES: Normal range of motion, no clubbing or edema. Neurovascularly intact NEUROLOGICAL: Cranial nerves II through XII grossly intact. Moving all extremities SKIN: Warm, dry, no petechiae, no rashes or lesions. Initial Vital Signs Initial Vital Signs: Vital Signs Temperature 98.2 F 06/22/24 16:48 Pulse Rate 75 06/22/24 16:48 Respiratory Rate 16 06/22/24 16:48 Blood Pressure 134/70 06/22/24 16:48 Pulse Oximetry 98 06/22/24 16:48 Oxygen Delivery Method Room Air 06/22/24 16:48 <Dorothy Post MD - Last Filed: 06/22/24 23:10> Initial Vital Signs Initial Vital Signs: Vital Signs Temperature 98.2 F 06/22/24 16:48 Pulse Rate 75 06/22/24 16:48 Respiratory Rate 16 06/22/24 16:48 Blood Pressure 134/70 06/22/24 16:48 Pulse Oximetry 98 06/22/24 16:48 Oxygen Delivery Method Room Air 06/22/24 16:48 Course <Dorothy Gabriel DO - Last Filed: 06/23/24 07:17> Orders Ordered: Discontinued Medications Ondansetron HCl (Ondansetron 4 Mg/2 Ml Inj) 4 mg IV NOW PRN PRN Reason: Nausea And Vomiting Ondansetron HCl (Ondansetron 4 Mg Odt) 4 mg PO NOW PRN PRN Reason: Nausea And Vomiting Vital Signs Vital signs: Vital Signs - 8 hr 06/22/24 16:48 06/22/24 17:38 06/22/24 17:38 Temperature 98.2 F Pulse Rate 75 60 Respiratory Rate 16 Blood Pressure 134/70 101/56 L Pulse Oximetry 98 96 Oxygen Delivery Method Room Air 06/22/24 19:40 Temperature Pulse Rate 58 L Respiratory Rate 16 Blood Pressure 127/59 L Pulse Oximetry 100 Oxygen Delivery Method Room Air <Dorothy Post MD - Last Filed: 06/22/24 23:10> Orders Ordered: Discontinued Medications Ondansetron HCl (Ondansetron 4 Mg/2 Ml Inj) 4 mg IV NOW PRN PRN Reason: Nausea And Vomiting Ondansetron HCl (Ondansetron 4 Mg Odt) 4 mg PO NOW PRN PRN Reason: Nausea And Vomiting Vital Signs Vital signs: Vital Signs - 8 hr 06/22/24 16:48 06/22/24 17:38 06/22/24 17:38 Temperature 98.2 F Pulse Rate 75 60 Respiratory Rate 16 Blood Pressure 134/70 101/56 L Pulse Oximetry 98 96 Oxygen Delivery Method Room Air 06/22/24 19:40 Temperature Pulse Rate 58 L Respiratory Rate 16 Blood Pressure 127/59 L Pulse Oximetry 100 Oxygen Delivery Method Room Air MDM - Abdominal Pain <Dorothy Gabriel DO - Last Filed: 06/23/24 07:17> Lab Data 06/22/24 17:09 06/22/24 17:09 Labs: Lab Results 06/22/24 Range/Units 17:09 WBC 9.2 (4.5-11.0) X10^3/uL RBC 4.08 L (4.5-5.9) X10^6/uL Hgb 13.1 L (13.5-17.5) g/dL Hct 38.2 L (41-53) % MCV 93.6 (80-100) fL MCH 32.2 (26-34) PG MCHC 34.4 (30-36) % RDW 12.8 (11.6-14.8) % Plt Count 521 H (150-400) X10^3/uL Neut % (Auto) 70.0 (50-75) % Lymph % (Auto) 18.9 L (25-40) % [place] % (Auto) 7.1 (3-14) % Eos % (Auto) 2.7 (2-4) % Baso % (Auto) 1.3 (0-2) % Neut # (Auto) 6400 (3664-3566) /uL Lymph # (Auto) 1700 (3394-4084) /uL [place] # (Auto) 700 (0-900) /uL Eos # (Auto) 200 (0-450) /uL Baso # (Auto) 100 (0-100) /uL Sodium 132 L (137-145) mmol/L Potassium 3.9 (3.4-5.1) mmol/L Chloride 101 (98-107) mmol/L Carbon Dioxide 24 (22-32) mmol/L BUN 20 (9-20) mg/dL Creatinine 1.67 H (0.66-1.25) mg/dL Estimated GFR 43 L (>60) mL/min BUN/Creatinine Ratio 12.0 (6-22) Glucose 147 H (80-110) mg/dL Calcium 9.3 (8.4-10.2) mg/dL Total Bilirubin 0.5 (0.2-1.3) mg/dL AST 23 (17-59) IU/L ALT 24 (<50) IU/L Alkaline Phosphatase 43 (38-126) U/L Total Protein 6.7 (6.3-8.2) g/dL Albumin 4.0 (3.5-5.0) g/dL Globulin 2.7 (1.7-4.1) g/dL Albumin/Globulin Ratio 1.5 (1.0-2.8) Lipase 46 (23-300) U/L ECG Data Attestation: I personally reviewed and interpreted this ECG as follows: Interpretation: Sinus rhythm rate of 62 MI 184 QRS of 96 QTC of 416, no acute ST elevation or depression noted. MDM Narrative Medical decision making narrative: 73-year-old male presents with recurrent left-sided abdominal and flank pain was last seen on 06/13 found to have small-bowel obstruction versus ileus and acute kidney injury. Patient has been taking some narcotics which may have been predisposing him to this. Patient states he has occasionally had narcotics with the pain is intense he has not had a bowel movement about 3 days states he had a very large bowel movement after magnesium citrate 3 days ago he has been passing flatus he has not having nausea or vomiting notes increased pain on the left lower abdomen and flank similar to his prior visits. He has been having a liquid diet. Patient notes an area that was pushed out the size of a baked potato but not palpable or visualized on exam. Patient's main concern is pancreatitis he did have changes on CT abdomen pelvis of chronic calcific pancreatitis but no elevation on his lipase during his stay. This is consistent with patient's history of chronic alcohol use. Labs EKG shows sinus rhythm CT abdomen pelvis repeated Patient signed out to Dr. Post while awaiting workup. Dr. Post - care of patient signed to me by Dr. Gabriel at 1800, independent review of patient and chart performed by myself. Labs show stable creatinine from discharge on 06/13. Patient reassessed, resting comfortably in bed. He states that his primary concern is making sure he was not need to be hospitalized and that he will be safe at home between now and when his appointment with General surgery is scheduled on the . CT shows chronic pancreatitis, no other acute findings. Mild R hydro seen on CT, however patient has no urinary or R sided symptoms and this is likely incident/artifactual as stated in the report. Patient counseled on all lab and imaging findings. He was counseled to continue to eat low-fat, small meals. He was a small amount of opiates present, however we will trial gabapentin and hyoscyamine for abdominal pains. A referral number for GI also sent in patient's discharge paperwork. ED return precautions discussed at bedside. <Dorothy Post MD - Last Filed: 06/22/24 23:10> Lab Data Labs: Lab Results 06/22/24 Range/Units 17:09 WBC 9.2 (4.5-11.0) X10^3/uL RBC 4.08 L (4.5-5.9) X10^6/uL Hgb 13.1 L (13.5-17.5) g/dL Hct 38.2 L (41-53) % MCV 93.6 (80-100) fL MCH 32.2 (26-34) PG MCHC 34.4 (30-36) % RDW 12.8 (11.6-14.8) % Plt Count 521 H (150-400) X10^3/uL Neut % (Auto) 70.0 (50-75) % Lymph % (Auto) 18.9 L (25-40) % [place] % (Auto) 7.1 (3-14) % Eos % (Auto) 2.7 (2-4) % Baso % (Auto) 1.3 (0-2) % Neut # (Auto) 6400 (1677-9985) /uL Lymph # (Auto) 1700 (6333-8534) /uL [place] # (Auto) 700 (0-900) /uL Eos # (Auto) 200 (0-450) /uL Baso # (Auto) 100 (0-100) /uL Sodium 132 L (137-145) mmol/L Potassium 3.9 (3.4-5.1) mmol/L Chloride 101 (98-107) mmol/L Carbon Dioxide 24 (22-32) mmol/L BUN 20 (9-20) mg/dL Creatinine 1.67 H (0.66-1.25) mg/dL Estimated GFR 43 L (>60) mL/min BUN/Creatinine Ratio 12.0 (6-22) Glucose 147 H (80-110) mg/dL Calcium 9.3 (8.4-10.2) mg/dL Total Bilirubin 0.5 (0.2-1.3) mg/dL AST 23 (17-59) IU/L ALT 24 (<50) IU/L Alkaline Phosphatase 43 (38-126) U/L Total Protein 6.7 (6.3-8.2) g/dL Albumin 4.0 (3.5-5.0) g/dL Globulin 2.7 (1.7-4.1) g/dL Albumin/Globulin Ratio 1.5 (1.0-2.8) Lipase 46 (23-300) U/L Imaging Data CT scan - abdomen/pelvis: Radiologist's Impression: PROCEDURE: CT ABDOMEN PELVIS W CON INDICATIONS: left sided abd/flank pain, had SBO vs ileus 06/13, no bmx3d TECHNIQUE: After the administration of intravenous contrast, axial sections acquired from the lung bases to the pubic symphysis. Coronal and sagittal reformats were performed. For radiation dose reduction, the following was used: automated exposure control, adjustment of mA and/or kV according to patient size. COMPARISON: [facility], CT, CT ABDOMEN PELVIS WO CON, 06/12/2024, 18:36. [facility], CR, XR ABDOMEN MIN 2V, 06/13/2024, 11:05. FINDINGS: Image quality: Diagnostic. Lower Chest: Moderate coronary artery calcification is seen. ABDOMEN: Liver: No solid mass. A presumed cysts can be seen along the central liver, as on series 2, image 40, stable. Gallbladder: Layering gallstones are seen within the gallbladder. The gallbladder is prominent in size. No additional CT findings of cholecystitis are seen. Biliary ducts: No biliary dilation. Pancreas: No ductal dilation. A few calcifications can be seen associated with the pancreas. Spleen: Size is within normal limits. Adrenal Glands: No adrenal nodules. Kidneys and Ureters: There is mild right-sided hydronephrosis. No cause of obstruction is seen. No solid mass. No complex renal cystic lesion which requires follow up. Several peripelvic cysts can be seen on the left. Stomach and Bowel: No dilated loops of small bowel are seen. Extensive distal colonic diverticulosis is seen, without findings of active diverticulitis. No significant additional colonic abnormality is seen. A normal appendix is noted. Peritoneum: No abnormal intraperitoneal fluid. No free air. Ventral Wall: A mild periumbilical hernia is seen, containing fat. Abdominal Nodes: No retroperitoneal or mesenteric adenopathy by size criteria. Vessels: Aorta and inferior vena cava are normal in size. PELVIS: Pelvic Organs: Unremarkable. Bladder: No bladder wall thickening, accounting for underdistention. Pelvic Nodes: No enlarged lymph nodes. Miscellaneous: No inguinal hernias are seen. Bones: No aggressive osseous abnormality. Mild dextroconvex scoliotic curvature is seen. Multiple levels of significant lumbar spine degenerative change can be seen. IMPRESSION: Negative for small bowel obstruction. Significant distal colonic diverticulosis, without findings of active diverticulitis. There is a mild degree of right-sided hydronephrosis, which is new compared to the prior examination, yet without a cause of obstruction seen. The clinical significance of this is uncertain and may simply be artifactual. Additional findings: Moderate coronary artery calcification Layering gallstones Presumed liver cyst Left kidney peripelvic cysts Chronic pancreatitis Mild fat containing periumbilical hernia Normal appendix Dextroconvex scoliotic curvature Multiple levels of lumbar spine degenerative change Dictated by: Jerzy Montero M.D. on 06/22/2024 at 17:22 Approved by: Jerzy Montero M.D. on 06/22/2024 at 17:29 MDM Narrative Medical decision making narrative: 73-year-old male presents with recurrent left-sided abdominal and flank pain was last seen on 06/13 found to have small-bowel obstruction versus ileus and acute kidney injury. Patient has been taking some narcotics which may have been predisposing him to this. Patient states he has occasionally had narcotics with the pain is intense he has not had a bowel movement about 3 days states he had a very large bowel movement after magnesium citrate 3 days ago he has been passing flatus he has not having nausea or vomiting notes increased pain on the left lower abdomen and flank similar to his prior visits. He has been having a liquid diet. Patient notes an area that was pushed out the size of a baked potato but not palpable or visualized on exam. Patient's main concern is pancreatitis he did have changes on CT abdomen pelvis of chronic calcific pancreatitis but no elevation on his lipase during his stay. This is consistent with patient's history of chronic alcohol use. Labs EKG shows sinus rhythm CT abdomen pelvis repeated Dr. Post - johan of patient signed to me by Dr. Gabriel at 1800, independent review of patient and chart performed by myself. Labs show stable creatinine from discharge on 06/13. Patient reassessed, resting comfortably in bed. He states that his primary concern is making sure he was not need to be hospitalized and that he will be safe at home between now and when his appointment with General surgery is scheduled on the . CT shows chronic pancreatitis, no other acute findings. Mild R hydro seen on CT, however patient has no urinary or R sided symptoms and this is likely incident/artifactual as stated in the report. Patient counseled on all lab and imaging findings. He was counseled to continue to eat low-fat, small meals. He was a small amount of opiates present, however we will trial gabapentin and hyoscyamine for abdominal pains. A referral number for GI also sent in patient's discharge paperwork. ED return precautions discussed at bedside. Discharge Plan Departure Patient Disposition: Home Clinical Impression: Abdominal pain Instructions: DI for Abdominal Pain-Adult Activity Restrictions/Additional Instructions: Your laboratory work today is overall similar to when you were discharged from the hospital and your kidney function is stable. Your CT today did show calcium deposits on the pancreas, which can be seen in chronic pancreatitis. If you review your CT results in your portal you may see any notice of liver cysts and kidney cysts. These are unchanged compared to previous CT scans. Usually these findings are incidental, do not cause pain, and are usually benign. Continue to follow a low-fat diet. Eat small meals to avoid cramping your intestines. Avoid alcohol and tobacco. We will trial gabapentin and hyoscyamine to see if this helps your pain. I would recommend following up with a GI doctor, a phone number has been provided. Avoid anti-inflammatories such as naproxen or ibuprofen to avoid irritating your kidneys. Prescriptions: New gabapentin 300 mg capsule 300 mg PO BID Qty: 60 0RF hyoscyamine sulfate 0.125 mg tablet,disintegrating 0.125 mg PO BID-QID PRN (Reason: dyspepsia) Qty: 30 0RF No Action clobetasol 0.05 % spray,non-aerosol 1 applictn TOP BID PRN (Reason: Psoriasis ) lisinopril 10 mg tablet 10 mg PO DAILY omeprazole 20 mg capsule,delayed release(DR/EC) 20 mg PO DAILY aspirin 81 mg Tablet 81 mg PO DAILY acetaminophen 500 mg Tablet 1,000 mg PO QID PRN (Reason: pain) hydrocodone-acetaminophen 5-325 mg tablet 1 tab PO Q6H PRN (Reason: pain) Qty: 10 0RF Referrals: Stan Myers MD [Non-Staff] - Tay Sol MD [Primary Care Provider] - Stand Alone Forms: Patient Portal/API/Survey
[2024-06-22 17:25] LABS: Alanine Aminotransferase 24 IU/L (<50); Albumin Globulin Ratio 1.5 (1.0-2.8); Alkaline Phosphatase 43 U/L (38-126); Aspartate Aminotransferase 23 IU/L (17-59); Bilirubin Total 0.5 mg/dL (0.2-1.3); Blood Urea Nitrogen 20 mg/dL (9-20); Calcium 9.3 mg/dL (8.4-10.2); Carbon Dioxide 24 mmol/L (22-32); Chloride 101 mmol/L (98-107); Estimated Glomerular Filt Rate 43 mL/min (>60); Globulin 2.7 g/dL (1.7-4.1); Glucose 147 mg/dL (80-110); HEMOLYSIS < 15 (0-50); Lipase 46 U/L (23-300); Potassium 3.9 mmol/L (3.4-5.1); Sodium 132 mmol/L (137-145); Total Protein 6.7 g/dL (6.3-8.2)
[2024-06-22 17:38] VITALS: BP 101/56; PULSE 60; O2SAT 96
[2024-06-22 17:46] LABS: Add Manual Diff / Slide Review NO; Basophils Absolute Auto 100 /uL (0-100); Basophils Percent Auto 1.3 % (0-2); Eosinophils Absolute Auto 200 /uL (0-450); Eosinophils Percent Auto 2.7 % (2-4); Hematocrit 38.2 % (41-53); Hemoglobin 13.1 g/dL (13.5-17.5); Lymphocytes Absolute Auto 1700 /uL (1100-4500); Lymphocytes Percent Auto 18.9 % (25-40); Mean Corpuscular HGB Conc 34.4 % (30-36); Mean Corpuscular Hemoglobin 32.2 PG (26-34); Mean Corpuscular Volume 93.6 fL (80-100); Monocytes Absolute Auto 700 /uL (0-900); Monocytes Percent Auto 7.1 % (3-14); Neutrophils Absolute Auto 6400 /uL (1500-7000); Platelet Count 521 X10^3/uL (150-400); Red Blood Cell Count 4.08 X10^6/uL (4.5-5.9); Red Cell Distribution Width 12.8 % (11.6-14.8); White Blood Cell Count 9.2 X10^3/uL (4.5-11.0)
--- NOTE | 2024-06-22 17:50 | DI.CT.S_ITS ---
PROCEDURE: CT ABDOMEN PELVIS W CON INDICATIONS: left sided abd/flank pain, had SBO vs ileus 06/13, no bmx3d TECHNIQUE: After the administration of intravenous contrast, axial sections acquired from the lung bases to the pubic symphysis. Coronal and sagittal reformats were performed. For radiation dose reduction, the following was used: automated exposure control, adjustment of mA and/or kV according to patient size. COMPARISON: [facility], CT, CT ABDOMEN PELVIS WO CON, 06/12/2024, 18:36. [facility], CR, XR ABDOMEN MIN 2V, 06/13/2024, 11:05. FINDINGS: Image quality: Diagnostic. Lower Chest: Moderate coronary artery calcification is seen. ABDOMEN: Liver: No solid mass. A presumed cysts can be seen along the central liver, as on series 2, image 40, stable. Gallbladder: Layering gallstones are seen within the gallbladder. The gallbladder is prominent in size. No additional CT findings of cholecystitis are seen. Biliary ducts: No biliary dilation. Pancreas: No ductal dilation. A few calcifications can be seen associated with the pancreas. Spleen: Size is within normal limits. Adrenal Glands: No adrenal nodules. Kidneys and Ureters: There is mild right-sided hydronephrosis. No cause of obstruction is seen. No solid mass. No complex renal cystic lesion which requires follow up. Several peripelvic cysts can be seen on the left. Stomach and Bowel: No dilated loops of small bowel are seen. Extensive distal colonic diverticulosis is seen, without findings of active diverticulitis. No significant additional colonic abnormality is seen. A normal appendix is noted. Peritoneum: No abnormal intraperitoneal fluid. No free air. Ventral Wall: A mild periumbilical hernia is seen, containing fat. Abdominal Nodes: No retroperitoneal or mesenteric adenopathy by size criteria. Vessels: Aorta and inferior vena cava are normal in size. PELVIS: Pelvic Organs: Unremarkable. Bladder: No bladder wall thickening, accounting for underdistention. Pelvic Nodes: No enlarged lymph nodes. Miscellaneous: No inguinal hernias are seen. Bones: No aggressive osseous abnormality. Mild dextroconvex scoliotic curvature is seen. Multiple levels of significant lumbar spine degenerative change can be seen. IMPRESSION: Negative for small bowel obstruction. Significant distal colonic diverticulosis, without findings of active diverticulitis. There is a mild degree of right-sided hydronephrosis, which is new compared to the prior examination, yet without a cause of obstruction seen. The clinical significance of this is uncertain and may simply be artifactual. Additional findings: Moderate coronary artery calcification Layering gallstones Presumed liver cyst Left kidney peripelvic cysts Chronic pancreatitis Mild fat containing periumbilical hernia Normal appendix Dextroconvex scoliotic curvature Multiple levels of lumbar spine degenerative change Dictated by: Jerzy Montero M.D. on 06/22/2024 at 17:22 Approved by: Jerzy Montero M.D. on 06/22/2024 at 17:29
[2024-06-22 19:40] VITALS: BP 127/59; PULSE 58; RESP 16; O2SAT 100
== END 2024-06-22 19:42 | disposition home or self-care (01) ==
PROVIDERS: Emergency Provider Emergency Medicine; PCP Internal Medicine
DX: R10.32 Left lower quadrant pain (principal); K86.1 Other chronic pancreatitis
CPT/HCPCS: 36415; 74177; 80053; 83690; 85025; 93005; 93010; 99284; Q9967

== ENCOUNTER → 2024-06-27 15:03 | Outpatient (CLI) | payer MEDICARE, OTHER, SELFPAY ==
[2024-06-12 21:38] VITALS: BMI 26.7
[2024-06-29 11:36] LABS: Fats, Neutral Normal (.); Fats, Total Normal (.)
[2024-07-02 13:09] LABS: Pancreatic Elastase, Fecal 460 (>200)
== END ==
PROVIDERS: PCP Internal Medicine; Referring Provider Internal Medicine; Visit Provider Internal Medicine
DX: R10.84 Generalized abdominal pain (principal)
CPT/HCPCS: 82656; 82705

== ENCOUNTER → 2024-09-15 09:08 | Outpatient (CLI) | payer MEDICARE, OTHER, SELFPAY ==
[2024-06-12 21:38] VITALS: BMI 26.7
== END ==
PROVIDERS: PCP Internal Medicine; Visit Provider Nurse Practitioner Family
DX: J02.9 Acute pharyngitis, unspecified (principal)
CPT/HCPCS: 87070